=== PATIENT | female | born 1960 | race Caucasian/White ===

== ENCOUNTER → 2024-05-09 | Outpatient (CLI) | payer BC ==
[2024-05-09 19:25] LABS: BUN/Creat Ratio 20.57 Ratio (12.00-20.00); Blood Urea Nitrogen 14.4 mg/dL (9.0-27.0); Chloride 103 mmol/L (96-109); Glucose 99 mg/dL (70-110); Potassium 4.3 mmol/L (3.5-5.5); Sodium 141 mmol/L (135-145)
[2024-05-09 19:26] LABS: Calcium 9.8 mg/dL (8.7-10.3); Carbon Dioxide 24.8 mmol/L (21.6-31.8); HGB 13.2 g/dL (12.0-15.0); MCH 24.7 pg (27.0-32.0); MCHC 30.7 g/dL (32.0-37.0); MCV 80.5 FL (80.0-97.0); Mean Platelet Volume 10.2 FL (9.5-12.2); NRBC Per 100 WBC 0 X 10*3/uL (0.00-0.01); Platelet Count 349 X 10*3/uL (140-440); RBC 5.34 X 10*6/uL (4.10-5.20); RDW 14.2 % (11.5-14.5); WBC 8.64 X 10*3/uL (4.50-10.00)
== END | disposition home or self-care (01) ==
LOC: LABPAT 15:18
PROVIDERS: ATTEND Orthopaedic Surgery
DX: Z01.818 Encounter for other preprocedural examination (principal); Z22.322 Carrier or suspected carrier of Methicillin resistant Staphylococcus aureus; M17.11 Unilateral primary osteoarthritis, right knee
CPT/HCPCS: 80048; 85027; 87070; 93005

== ENCOUNTER 2024-05-22 07:52 | Day surgery (SDC) | payer BC ==
[~2024-05-22 07:52] MED LIST: TRANEXAMIC 1,000 MG/100ML-NACL 1,000 MG in SALINE 1 100ML.BAG IVPB PRN
--- NOTE | 2024-05-22 08:12 | HP ---
HISTORY AND PHYSICAL DATE OF SURGERY: 05/17/2024 HISTORY OF PRESENT ILLNESS: Devika Mahoney is a 63-year-old patient, seen with symptomatic right knee osteoarthritis. We discussed options regarding treatment. She elected to proceed with right total knee arthroplasty. Consent regarding the procedure was obtained. PAST MEDICAL HISTORY: Hyperlipidemia, osteoarthritis. SURGICAL HISTORY: Left partial knee arthroplasty, hysterectomy. DAILY MEDICATIONS: 1. Atorvastatin. 2. Diclofenac. ALLERGIES: None. SOCIAL HISTORY: She denies current tobacco use. PHYSICAL EVALUATION OF RIGHT KNEE: Range of motion is -6 to 80 degrees. Tenderness along the medial and lateral joint lines. Crepitance along the medial patellofemoral compartments with range of motion. Pain with patellofemoral compression. Ligaments stable. Hip rotation is without pain. Distal neurovascular exam is intact. IMAGING: Right knee radiographs reveal severe osteoarthritic changes. IMPRESSION: 1. Right knee osteoarthritis. 2. Hyperlipidemia. PLAN: Right total knee arthroplasty. MMODL / IJN: [id number] /
[2024-05-22] MEDS: IV FLUID CONTINUATION 1,000 ML IV ONE (08:36)
[2024-05-22] MEDS ORDERED: fentaNYL (PF) 50 MCG/ML 2 ML AMP IVP PRN (08:47)
[2024-05-22] MEDS ORDERED: LIDOCAINE 1% (10MG/ML) FOR IV START INTRADERMA PRN (08:47)
[2024-05-22] MEDS: ONDANSETRON 4 MG/2 ML VIAL IVP ONE (08:52)
[2024-05-22] MEDS: LACTATED RINGERS 1,000 ML IV SCH (08:52)
[2024-05-22] MEDS: DEXAMETHASONE SOD PHOSPHATE 4 MG/ML 1 ML VIAL IV ONE (08:52)
[2024-05-22] MEDS: MELOXICAM 7.5 MG TAB PO PRN (08:52)
[2024-05-22] MEDS: ACETAMINOPHEN TAB 500 MG TAB PO PRN (08:53)
[2024-05-22] MEDS: MIDAZOLAM 2 MG/2 ML VIAL IV PRN (09:16)
[2024-05-22] MEDS: MIDAZOLAM 2 MG/2 ML VIAL IVP ONE (09:18)
[2024-05-22] MEDS ORDERED: ROCURONIUM 10 MG/ML (5 ML VIAL) IV ONE (09:54)
[2024-05-22] MEDS ORDERED: PHENYLEPHRINE-0.9% NACL SYG 1,000 MCG/10 ML SYRINGE ONE (09:54)
[2024-05-22] MEDS ORDERED: MIDAZOLAM 2 MG/2 ML VIAL ONE (09:54)
[2024-05-22] MEDS ORDERED: NEOSTIGMINE 1 MG/ML 10 ML VIAL ONE (09:54)
[2024-05-22] MEDS ORDERED: PROPOFOL 10 MG/ML 20 ML VIAL IV ONE (09:54)
[2024-05-22] MEDS ORDERED: LIDOCAINE 1% INJ 10MG/ML (20 ML MDV) ONE (09:54)
[2024-05-22] MEDS ORDERED: fentaNYL (PF) 50 MCG/ML 2 ML AMP ONE (09:54)
[2024-05-22] MEDS ORDERED: SUCCINYLCHOLINE CHLORIDE 200 MG/10 ML VIAL IV ONE (09:54)
[2024-05-22] MEDS ORDERED: GLYCOPYRROLATE 0.2 MG/ML 2 ML VIAL ONE (09:54)
[2024-05-22] MEDS ORDERED: ROPIVACAINE 5 MG/ML 30 ML VIAL ONE (09:54)
[2024-05-22] MEDS ORDERED: SODIUM CHLORIDE 0.9% (PF) 10 ML VIAL ONE (09:54)
[2024-05-22] MEDS ORDERED: TRANEXAMIC 1,000 MG/100ML-NACL PREMIX BAG ONE (09:54)
[2024-05-22] MEDS ORDERED: KETAMINE HCL IN 0.9 % NACL 50 MG/5 ML SYRINGE ONE (09:54)
[2024-05-22] MEDS: ceFAZolin 1,000 MG in SODIUM CHLORIDE 0.9% 1,000 ML IRRIGATION ONE (10:27)
[2024-05-22] MEDS: LACTATED RINGERS 1,000 ML IV ONE (11:33)
[2024-05-22] MEDS ORDERED: HYDROcodone/APAP 5-325MG 1 EACH TAB PO PRN (11:43)
[2024-05-22] MEDS ORDERED: HYDROmorphone 0.5 MG/0.5 ML SYRINGE IVP PRN (11:43)
[2024-05-22] MEDS ORDERED: NALOXONE 0.4 MG/ML 1 ML VIAL IV PRN (11:43)
--- NOTE | 2024-05-22 11:43 | P.OP ---
Date of Procedure: 05/22/24 Preoperative Diagnosis: Right knee osteoarthritis Postoperative Diagnosis: Right knee osteoarthritis Procedure(s) Performed: Right total knee arthroplasty Implants: 1. DePuy attune size 6 narrow right cruciate retaining cemented femur 2. DePuy attune size 6 fixed-bearing cemented tibial baseplate 3. DePuy attune size 6 fixed-bearing cruciate retaining 6 mm polyethylene tibial insert 4. DePuy attune 35 mm all polyethylene cemented patella Anesthesia: regional (Adductor canal catheter, iPAQ block), spinal Surgeon: Sander Duron Product Safety Expert #1: Sylvester Lindsay Estimated Blood Loss (ml): 55 Pathology: none sent Condition: stable Disposition: PACU Indications for Procedure: 63-year-old patient seen with symptomatic right knee osteoarthritis. After having treatment options discussed, she elected to proceed with total knee arthroplasty Operative Findings: See description of procedure Description of Procedure: Patient was taken to the operative suite after having an adductor canal catheter placed by the department of anesthesia. Patient underwent a spinal anesthetic by the department of anesthesia. Patient was given preoperative IV intake antibiotics and TXA. A well-padded tourniquet was placed about the right lower extremity. The lower extremity was then prepped and draped in the normal sterile orthopedic fashion. The extremity was elevated, a tourniquet was insufflated to 300. A standard anterior incision was made sharply through skin. Dissection was taken down through the subcutaneous soft tissues down to the extensor mechanism. A medial arthrotomy was performed, patella was everted and knee was flexed. There was advanced osteoarthritis noted. I introduced my distal intramedullary femoral drill. I then introduced the distal femoral cutting jig. Sylvester BECK secured the cutting jig with 2 pins. I held retractors in position while EBONY performed the distal femoral resection through the guide area we now removed her distal femoral cutting guide. We now placed our 4-in-1 femoral cutting block and positioned and it was secured with 2 pins by Sylvester BECK while I held the block in position. The distal femoral finishing was now completed. A proximal tibial cutting guide was positioned. I held the guide in the appropriate position with both hands while Sylvester BECK inserted stabilizing pins into the guide. Proximal tibial cut was made. We now placed a trial femoral component into position, along with an appropriate size tibial tray and insert. We now took the knee through range of motion and had full extension good flexion and good overall soft tissue balance noted. The patella was everted and stabilized with 2 towel clips held by Sylvester BECK while I performed a flush with patellar quad tendon utilizing a fresh sawblade. We templated the patella, appropriate drill holes were made. An appropriate trial patella was positioned, knee was taken through full range of motion with the patella tracking very nicely. The trial patella was removed. Drill holes were made through the femoral component. All trial components were removed after marking off the appropriate rotation of the tibia. Retractors were now positioned along the proximal tibia. An appropriate keel punch was made with the appropriate size tibial guide by myself on Sylvester BECK assisted by holding retractors. At this point appropriate size implants were chosen and opened. The joint was irrigated copiously with pulse lavage mechanical irrigation. The wound was irrigated with pulse lavage mechanical irrigation. We mixed antibiotic methylmethacrylate. We placed the knee into flexion. We placed multiple retractors assisted by Sylvester BECK to expose the proximal tibia. Once the methyl methacrylate was ready, the tibial component was cemented into place removing any excess methylmethacrylate form by both myself and Sylvester BECK. The femoral component was cemented into place removing the removing any excess methylmethacrylate performed by both myself and Karis BECK. We then inserted the appropriate size polyethylene tibial insert. We made sure that it was locked into position. We took the knee into full extension, and then back in a flexion making sure we had removed any excess methylmethacrylate. The patellar component was then cemented down and secured with clamp. Excess methylmethacrylate removed. We kept the knee in full extension, patellar clamp in position until methylmethacrylate had hardened. Once it had hardened the patellar clamp was removed. The knee was taken through full range of motion. The patella tracked nicely. There was good soft tissue balancing. The tourniquet was now released. Additional hemostasis was achieved via electrocautery. A second gram of TXA was given. The wound again was irrigated with pulse lavage mechanical irrigation. The extensor mechanism was repaired with Vicryl. We checked the repair with range of motion and it was stable. The subcutaneous soft tissues were repaired with Vicryl in layers. The skin was approximated with pernio/Dermabond. Sterile dressings were applied followed by loose web roll and Marcell bandage. The patient was transferred to a bed, and taken to recovery in stable and satisfactory condition. Sylvester BECK assisted with this complex procedure.
[2024-05-22] MEDS: HYDROmorphone 0.5 MG/0.5 ML SYRINGE IVP PRN (12:21)
[2024-05-22] MEDS: ROPIVACAINE 1,100 MG, SODIUM CHLORIDE 0.9% 500 ML 330 ML, EMPTY PAIN BALL 1 EACH MISCELLANE PRN (12:26)
[2024-05-22] MEDS: droPERidol 2.5 MG/ML VIAL IVP ONE (12:54)
--- NOTE | 2024-05-22 13:12 | XR ---
EXAMINATION TYPE: XR knee limited RT DATE OF EXAM: 05/22/2024 1:05 PM COMPARISON: Prior right knee x-ray April 18, 2024 CLINICAL INDICATION: Female, 63 years old with history of Evaluation for Postop abnormality and align ment, pain TECHNIQUE: Portable AP and crosstable lateral views of the right knee are obtained immediately posto peratively. FINDINGS: Metallic hardware from total right knee arthroplasty is seen and appears satisfactory in alignment and position. There is evidence of recent surgery with diffuse subcutaneous gas and soft t issue swelling noted. IMPRESSION: METALLIC HARDWARE FROM TOTAL RIGHT KNEE ARTHROPLASTY IS SATISFACTORY IN ALIGNMENT. [facility], , 05/22/2024 1:10 PM
--- NOTE | 2024-05-22 14:31 | P.ANPRN ---
Procedure Note - Anesthesia - Nerve Block Performed Right Adductor Canal Infusion Time Out Performed: Yes (0916) Date of Procedure: 05/22/24 Location of Patient: PreOp Indication: Acute Post-Operative Pain, Analgesia, Dx/Pain Location (right knee), Requested by Surgeon Specifically requested for management of pain by DrSusana: Sander Duron Sedation Type: Sedate with meaningful contact maintained Preparation: Sterile Prep, Sterile Dressing Position: Supine Catheter: Indwelling Needle Types: Pajunk Needle Gauge: 18 Ultrasound used to visualize needle placement: Yes Ultrasound used to observe medication spread: Yes Injectate: 0.5% Ropivacaine (see comment for volume) (20 mL +10 mL of normal saline) Blood Aspirated: No Pain Paresthesia on Injection Noted: No Resistance on Injection: Normal Image Stored and Saved: Yes Events: Uneventful and Well Tolerated Right iPack Single Time Out Performed: Yes Date of Procedure: 05/22/24 Location of Patient: PreOp Indication: Acute Post-Operative Pain, Analgesia, Dx/Pain Location (right knee), Requested by Surgeon Specifically requested for management of pain by DrSusana: Sander Duron Sedation Type: Sedate with meaningful contact maintained Preparation: Sterile Prep Position: Left Lateral Catheter: None Needle Types: Pajunk Needle Gauge: 21 Ultrasound used to visualize needle placement: Yes Ultrasound used to observe medication spread: Yes Injectate: 0.5% Ropivacaine (see comment for volume) (20 mL +10 mL of normal saline) Blood Aspirated: No Pain Paresthesia on Injection Noted: No Resistance on Injection: Normal Image Stored and Saved: Yes Events: Uneventful and Well Tolerated
[2024-05-22] MEDS: HYDROcodone/APAP 7.5-325MG 1 EACH TAB PO PRN (14:44)
[2024-05-22] MEDS: SODIUM CHLORIDE 0.9% 1,000 ML IV SCH (14:45)
[2024-05-22] MEDS: HYDROmorphone 1 MG/ML 1 ML SYRINGE IVP PRN (16:46)
[2024-05-22] MEDS: SENNOSIDES-DOCUSATE SODIUM 1 EACH TAB PO SCH (21:22)
[2024-05-22] MEDS: ASPIRIN 81 MG PO SCH (21:22)
[2024-05-23] MEDS: HYDROmorphone 0.5 MG/0.5 ML SYRINGE IVP PRN (01:29)
--- NOTE | 2024-05-23 07:52 | P.PN ---
Progress Note - Text Progress Note Date: 05/23/24 (015) Anesthesiology Postop day 1 status post total knee arthroplasty with adductor canal catheter. Patient doing well. VAS 5 out of 10. Gross strength intact in lower extremity. Afebrile. Denies alterations in sensorium. Catheter site intact. Heart regular rate Lungs nonlabored Abdomen nondistended Assessment: Postop day 1 status post total knee arthroplasty with adductor canal catheter Plan: 1.All questions answered. Maintain catheter 2 more days with patient removal at home. Instructions to be given at discharge. 2.This note was dictated using [employer]sens[employer] software. Please be advised there is a potential for misspellings or errors in bone char puller.
[2024-05-23 08:42] LABS: Basophils # (A) 0.02 X 10*3/uL (0.00-0.10); Basophils % (A) 0.2 %; Eosinophils # (A) 0 X 10*3/uL (0.04-0.35); Eosinophils % (A) 0 %; HCT 37.6 % (37.2-46.3); HGB 11.7 g/dL (12.0-15.0); Lymphocytes # (A) 1.79 X 10*3/uL (0.90-5.00); Lymphocytes % (A) 14.3 %; MCH 25.2 pg (27.0-32.0); MCHC 31.1 g/dL (32.0-37.0); MCV 80.9 FL (80.0-97.0); Mean Platelet Volume 10.3 FL (9.5-12.2); Monocytes # (A) 0.87 X 10*3/uL (0.20-1.00); NRBC Per 100 WBC 0 X 10*3/uL (0.00-0.01); Neutrophils # (A) 9.77 X 10*3/uL (1.80-7.70); Platelet Count 282 X 10*3/uL (140-440); RBC 4.65 X 10*6/uL (4.10-5.20); RDW 14.1 % (11.5-14.5); WBC 12.51 X 10*3/uL (4.50-10.00)
[2024-05-23] MEDS: hydrOXYzine pamoate 25 MG CAP PO PRN (08:48)
[2024-05-23] MEDS: MULTIVITAMINS, THERA 1 EACH TAB PO SCH (08:49)
--- NOTE | 2024-05-23 12:08 | P.PN ---
Subjective Progress Note Date: 05/23/24 Principal diagnosis: Status post right total knee arthroplasty Patient was evaluated at bedside, she was resting in her hospital bed. Physical therapy was actually just about get patient up and work with her. Patient did have quite a bit of pain yesterday in the postoperative period, she was initially scheduled as outpatient, she was then admitted to the hospital for pain control. On-Q pain catheter in good position condition, she is tolerating oral medications. She denies headaches, headedness, chest pain or shortness of breath Objective - Vital Signs Vital signs: Vital Signs Temp 98.2 F 05/23/24 06:55 Pulse 62 05/23/24 06:55 Resp 18 05/23/24 11:16 BP 105/65 05/23/24 06:55 Pulse Ox 92 L 05/23/24 06:55 FiO2 Intake & Output 05/22/24 05/23/24 05/23/24 18:59 06:59 18:59 Intake Total 1451 300 Output Total 155 100 Balance 1296 200 Weight 115 kg Intake: IV 1451 Oral 300 Output: Urine 100 100 Estimated Blood Loss 55 Other: Voiding Method Bedside Commode Bedside Commode # Voids 1 1 - Exam Right lower extremity: Incision is clean, dry, and intact. The foam dressing is in good condition. There is minimal soft tissue swelling and ecchymosis surrounding the medial and lateral aspects of the incision. Calf is soft, no tenderness with palpation. Plantar flexion, dorsiflexion, EHL, FHL are intact. Sensory exam to light touch throughout the extremity is intact, dorsal pedis pulses 2+. - Labs CBC & Chem 7: 05/23/24 03:36 Labs: Abnormal Lab Results - Last 24 Hours (Table) 05/23/24 Range/Units 03:36 WBC 12.51 H (4.50-10.00) X 10*3/uL Hgb 11.7 L (12.0-15.0) g/dL MCH 25.2 L (27.0-32.0) pg MCHC 31.1 L (32.0-37.0) g/dL Immature Gran # 0.06 H (0.00-0.04) X 10*3/uL Neutrophils # 9.77 H (1.80-7.70) X 10*3/uL Eosinophils # 0 L (0.04-0.35) X 10*3/uL Assessment and Plan Assessment: Postoperative day #1 status post right total knee arthroplasty Plan: Pain control, continue with current oral medications DVT prophylaxis, continue aspirin 81 mg Wound care instructions were discussed, this to include bandaging instructions, On-Q pain catheter, showering and icing and elevating Encourage incentive spirometer Medical recommendations appreciated PT recommendations appreciated Discharge planning: Pending pain control hopeful discharge home today versus 05/24/2024 Time with Patient: Less than 30
--- NOTE | 2024-05-23 13:03 | P.CONS ---
History of Present Illness - Reason for Consult Consult date: 05/23/24 Medical management - History of Present Illness History of present illness; patient 63-year-old lady with past medical history significant for osteoarthritis, hyperlipidemia who presented to the hospital for elective right total knee arthroplasty. Patient has been dealing outpatient with right knee pain for a while, patient was following up outpatient with orthopedics, they tried conservative measures in the form of therapy, pain medications and KENNY's but did not improve patient's symptoms. Decision was made to proceed with right total knee arthroplasty for which patient presented to the hospital on 05/22. Postoperatively internal medicine team were consulted for medical management REVIEW OF SYSTEMS: CONSTITUTIONAL: No fever, no malaise, no fatigue. HEENT: No recent visual problems or hearing problems. Denied any sore throat. CARDIOVASCULAR: No chest pain, orthopnea, PND, no palpitations, no syncope. PULMONARY: No shortness of breath, no cough, no hemoptysis. GASTROINTESTINAL: No diarrhea, no nausea, no vomiting, no abdominal pain. NEUROLOGICAL: No headaches, no weakness, no numbness. HEMATOLOGICAL: Denies any bleeding or petechiae. GENITOURINARY: Denies any burning micturition, frequency, or urgency. MUSCULOSKELETAL/RHEUMATOLOGICAL: Right knee pain ENDOCRINE: Denies any polyuria or polydipsia. The rest of the 14-point review of systems is negative. PHYSICAL EXAMINATION: GENERAL: The patient is alert and oriented x3, not in any acute distress. Well developed, well nourished. HEENT: Pupils are round and equally reacting to light. EOMI. No scleral icterus. No conjunctival pallor. Normocephalic, atraumatic. No pharyngeal erythema. No thyromegaly. CARDIOVASCULAR: S1 and S2 present. No murmurs, rubs, or gallops. PULMONARY: Chest is clear to auscultation, no wheezing or crackles. ABDOMEN: Soft, nontender, nondistended, normoactive bowel sounds. No palpable organomegaly. MUSCULOSKELETAL: Right knee surgical incision EXTREMITIES: No cyanosis, clubbing, or pedal edema. NEUROLOGICAL: Gross neurological examination did not reveal any focal deficits. SKIN: No rashes. Assessment and plan Right knee osteoarthritis status post right total knee arthroplasty Hyperlipidemia Monitor vital signs Monitor CBC Continue pain management per orthopedics Continue DVT prophylaxis per orthopedics Aggressive bowel regimen to prevent opioid-induced constipation Resume home meds PT and OT consulted Labs and medication were reviewed.. Continue same treatment. Continue with symptomatic treatment. Resume home medication. Monitor labs and vitals. DVT and GI prophylaxis. Further recommendations as per clinical course of the patient Dictation was produced using [employer] dictation software. please excuse any grammatical, word or spelling errors. Past Medical History Past Medical History: Hyperlipidemia History of Any Multi-Drug Resistant Organisms: None Reported Past Surgical History: Hysterectomy, Joint Replacement Additional Past Surgical History / Comment(s): lft partial knee Past Anesthesia/Blood Transfusion Reactions: No Reported Reaction Past Psychological History: No Psychological Hx Reported Smoking Status: Never smoker Past Alcohol Use History: None Reported Past Drug Use History: None Reported - Past Family History Father Family Medical History: No Reported History Medications and Allergies Home Medications Medication Instructions Recorded Confirmed Type Aspirin [Adult Low Dose Aspirin EC] 81 mg PO HS 05/17/24 05/22/24 History Atorvastatin Calcium 20 mg PO HS 05/17/24 05/22/24 History Acetaminophen Tab [Tylenol Tab] 1,000 mg PO Q6HR PRN 05/22/24 05/22/24 History Diclofenac Sodium [Voltaren] 75 mg PO BID PRN 05/22/24 05/22/24 History Ibuprofen [Motrin] 400 mg PO Q6HR PRN 05/22/24 05/22/24 History Allergies Allergy/AdvReac Type Severity Reaction Status Date / Time No Known Allergies Allergy Verified 05/22/24 08:32 Physical Exam Vitals: Vital Signs Temp Pulse Resp BP Pulse Ox 05/23/24 06:55 98.2 F 62 17 105/65 92 L 05/23/24 01:34 97.9 F 65 17 125/77 97 05/22/24 19:38 97.6 F 64 18 155/77 96 05/22/24 15:30 69 130/83 05/22/24 15:19 98.3 F 52 L 18 124/79 97 05/22/24 15:15 57 L 133/83 96 05/22/24 15:00 59 L 129/84 95 05/22/24 14:45 60 16 131/76 95 05/22/24 14:30 56 L 131/81 95 05/22/24 14:25 59 L 16 119/76 96 05/22/24 13:52 57 L 16 112/66 96 05/22/24 13:35 57 L 16 124/71 96 05/22/24 13:20 56 L 16 116/73 05/22/24 13:05 55 L 16 116/62 95 05/22/24 12:50 53 L 16 116/70 94 L 05/22/24 12:35 55 L 16 120/68 94 L 05/22/24 12:20 55 L 14 128/86 92 L 05/22/24 12:05 63 14 153/92 95 Intake and Output 05/22/24 05/23/24 05/23/24 22:59 06:59 14:59 Intake Total 300 Output Total 100 Balance -100 300 Intake: Oral 300 Output: Urine 100 Other: Voiding Method Bedside Commode # Voids 1 Results CBC & Chem 7: 05/23/24 03:36 Labs: Abnormal Lab Results - Last 24 Hours (Table) 05/23/24 Range/Units 03:36 WBC 12.51 H (4.50-10.00) X 10*3/uL Hgb 11.7 L (12.0-15.0) g/dL MCH 25.2 L (27.0-32.0) pg MCHC 31.1 L (32.0-37.0) g/dL Immature Gran # 0.06 H (0.00-0.04) X 10*3/uL Neutrophils # 9.77 H (1.80-7.70) X 10*3/uL Eosinophils # 0 L (0.04-0.35) X 10*3/uL
[2024-05-23] MEDS: ONDANSETRON 4 MG/2 ML VIAL IVP PRN (13:24)
[2024-05-23] MEDS: ASPIRIN 81 MG PO SCH (20:19)
[2024-05-23] MEDS: ATORVASTATIN 20 MG TAB PO SCH (21:04)
[2024-05-24 07:25] VITALS: BP 129/72; PULSE 82; RESP 18; TEMP 98.2
--- NOTE | 2024-05-24 11:29 | P.PN ---
Subjective Progress Note Date: 05/24/24 Principal diagnosis: Status post right total knee arthroplasty Patient was evaluated at bedside, she was resting in her hospital bed. Pain is better controlled today. She denies headaches, headedness, chest pain or shortness of breath Objective - Vital Signs Vital signs: Vital Signs Temp 98.2 F 05/24/24 07:24 Pulse 82 05/24/24 07:24 Resp 18 05/24/24 07:24 BP 129/72 05/24/24 07:24 Pulse Ox 90 L 05/24/24 07:24 FiO2 Intake & Output 05/23/24 05/24/24 05/24/24 18:59 06:59 18:59 Intake Total 300 Output Total 100 Balance 200 Intake: Oral 300 Output: Urine 100 Other: Voiding Method Bedside Commode Bedside Commode # Voids 4 1 - Exam Right lower extremity: Incision is clean, dry, and intact. The foam dressing is in good condition. There is minimal soft tissue swelling and ecchymosis surrounding the medial and lateral aspects of the incision. Calf is soft, no tenderness with palpation. Plantar flexion, dorsiflexion, EHL, FHL are intact. Sensory exam to light touch throughout the extremity is intact, dorsal pedis pulses 2+. - Labs CBC & Chem 7: 05/23/24 03:36 Assessment and Plan Assessment: Postoperative day #2 status post right total knee arthroplasty Plan: Pain control, plan for discharge home on [place] 7.5 mg / 325 mg DVT prophylaxis, aspirin 81 mg twice a day for 30 days Wound care instructions were discussed, this to include bandaging instructions, On-Q pain catheter, showering and icing and elevating Encourage incentive spirometer Medical recommendations appreciated PT recommendations appreciated Discharge planning: Stable for discharge home today Time with Patient: Less than 30
--- NOTE | 2024-05-24 11:35 | P.DS ---
Providers Date of admission: 05/22/2024 Expected date of discharge: 05/24/24 Attending physician: Sander Duron Consults: 05/22/24 11:43 Consult Physician Routine Consulting Provider: Bushra Marlow Consult Reason/Comments: Medical management Do you want consulting provider notified?: Yes Primary care physician: Madina Lor [facility] Course: Date of admission: 05/22/2024 Date of discharge: 05/24/2024 Admission diagnosis: Status post right total knee arthroplasty Discharge diagnosis: Same Attending physician: Dr. Duron Surgical procedures: Right total knee arthroplasty Brief history: Patient is a 63-year-old female with a history of progressive primary right knee osteoarthritis. At this point patient has failed conservative treatment measures and has opted to proceed with a elective right total knee arthroplasty. Hospital course: Details of patient's surgery can be found in operative report. Patient tolerated the procedure well and was subsequently transported to orthopedic floor. Patient's orthopeidc and medical care was provided daily. Patient had daily laboratory tests performed for evaluation of overall blood counts. Patient had daily physical therapy to include strengthening range of motion as well as education with walker ambulation. Patient was treated with aspirin for their postoperative DVT prophylaxis during their inpatient stay. David hutson was noted to have a relatively uneventful postoperative course. Patient reported satisfactory pain control with oral pain medications by postoperative day 2. Patient showed satisfactory progress with physical therapy. Patient moved steadily through the program and had no difficulty meeting the goals by postoperative day 2. Given patient's otherwise satisfactory course and having met physical therapy goals, plan is to discharge patient home on postoperative day 2. Discharge condition/disposition: Patient will be discharged home in stable condition. Discharge medications: Instructions are given on resumption of patient's normal daily medications per primary care recommendation, in addition patient will be prescribed [place] 7.5 mg / 325 mg, aspirin 81 mg, senna S. Discharge instructions: 1. Wound care and infection precautions, keep incision dry and covered while showering, no lotions, creams, moisturizers. No soaking, tubs, pools, hottubs. Do not scrub over the incision. 2. Weight-bear as tolerated with walker / cane until follow-up. 3. Ice and elevate when necessary. Do not exceed 20 minutes per hour with ice pack. 4. Utilize compression sleeve until seen at first follow up appointment. 5. Visiting nursing care. 6. Home physical therapy including home CPM. 7. Pain meds and anticoagulants per prescription. 8. Pain medication has potential to cause constipation. Increase oral fluid and fiber intake. Contact primary care provider if you have not had a bowel movement within 48 hours after discharge 9. No anti-inflammatory medication until discussed at first post operative visit, this including Motrin, Aleve, Mobic, Diclofenac. 10. Follow up in office at 2 weeks postop with Geoffrey Lozada PA-C/Sylvester Monsivais 11. Follow up with your primary care doctor 7-10 days after discharge. 12. Contact [facility] with any questions, . Procedures: Right total knee arthroplasty Patient Condition at Discharge: Good Plan - Discharge Summary Discharge Rx Participant: Yes New Discharge Prescriptions: New Aspirin [Adult Low Dose Aspirin EC] 81 mg PO BID #60 tab HYDROcodone/APAP 7.5-325MG [[place] 7.5] 1 each PO Q4HR PRN #42 tab PRN Reason: Pain Sennosides/Docusate Sodium [Senna-S 8.6-50 mg Tablet] 2 each PO DAILY PRN #30 tablet PRN Reason: Constipation No Action Atorvastatin Calcium 20 mg PO HS Diclofenac Sodium [Voltaren] 75 mg PO BID PRN PRN Reason: Pain Aspirin [Adult Low Dose Aspirin EC] 81 mg PO HS Acetaminophen Tab [Tylenol Tab] 1,000 mg PO Q6HR PRN PRN Reason: Pain Ibuprofen [Motrin] 400 mg PO Q6HR PRN PRN Reason: Pain Discharge Medication List Aspirin [Adult Low Dose Aspirin EC] 81 mg PO HS 05/17/24 [History] Atorvastatin Calcium 20 mg PO HS 05/17/24 [History] Acetaminophen Tab [Tylenol Tab] 1,000 mg PO Q6HR PRN 05/22/24 [History] Diclofenac Sodium [Voltaren] 75 mg PO BID PRN 05/22/24 [History] Ibuprofen [Motrin] 400 mg PO Q6HR PRN 05/22/24 [History] Aspirin [Adult Low Dose Aspirin EC] 81 mg PO BID #60 tab 05/24/24 [Rx] HYDROcodone/APAP 7.5-325MG [[place] 7.5] 1 each PO Q4HR PRN #42 tab 05/24/24 [Rx] Sennosides/Docusate Sodium [Senna-S 8.6-50 mg Tablet] 2 each PO DAILY PRN #30 tablet 05/24/24 [Rx] Follow up Appointment(s)/Referral(s): [facility], [NON-STAFF] - 1-2 Days ([facility] will call you to schedule your in home physical therapy and nursing visits. ) Ermias Lozada PAC [PHYSICIAN PHARMACEUTICAL ANALYST] - 06/09/24 9:30 am Patient Instructions/Handouts: Knee Replacement (GEN) Activity/Diet/Wound Care/Special Instructions: Orthopedic Discharge Instructions: 1. Wound care and infection precautions, keep incision dry and covered while showering, no lotions, creams, moisturizers. No soaking, pools, hot tubs. Do not scrub over incision. 2. Weight-bear as tolerated with walker / cane until follow-up. 3. Ice and elevate when necessary. Do not exceed 20 minutes per hour with ice pack. 4. Utilize compression sleeve until seen at first follow up appointment. 5. Pain meds and anticoagulants per prescription. 6. Pain medication has potential to cause constipation. Increase oral fluid and fiber intake. Contact primary care provider if you have not had a bowel movement within 48 hours after discharge. 7. No anti-inflammatory medication until discussed at first post operative visit, this including Motrin, Aleve, Mobic, Diclofenac. 8. Follow up in office at 2 weeks postop with Geoffrey Lozada PA-C / Sylvester Lindsay PA-C 9. Follow up with your primary care doctor 7-10 days after discharge. 10. Contact [facility] with any questions, . Keep incision clean, dry, intact. While showering, cover silver foam dressing with Saran wrap. Keep silver foam dressing on until 05/29/2024. Once dressing is removed, it is okay to shower directly over incision. Discharge Disposition: HOME WITH HOME HEALTH SERVICES
--- NOTE | 2024-05-24 13:23 | P.PN ---
Subjective Progress Note Date: 05/24/24 patient 63-year-old lady with past medical history significant for osteoarthritis, hyperlipidemia who presented to the hospital for elective right total knee arthroplasty. Patient has been dealing outpatient with right knee pain for a while, patient was following up outpatient with orthopedics, they tried conservative measures in the form of therapy, pain medications and KENNY's but did not improve patient's symptoms. Decision was made to proceed with right total knee arthroplasty for which patient presented to the hospital on 05/22. Postoperatively internal medicine team were consulted for medical management 05/24. Patient seen examined. Patient is doing well, working with PT and OT. Being discharged to home today REVIEW OF SYSTEMS: CONSTITUTIONAL: No fever, no malaise,. CARDIOVASCULAR: No chest pain, no palpitations, no syncope. PULMONARY: No shortness of breath, no cough, GASTROINTESTINAL: No diarrhea, no nausea, no vomiting, no abdominal pain. NEUROLOGICAL: No headaches, no weakness, PHYSICAL EXAMINATION: GENERAL: The patient is alert and oriented x3, not in any acute distress. Well developed, well nourished. HEENT: Pupils are round and equally reacting to light. EOMI. No scleral icterus. No conjunctival pallor. Normocephalic, atraumatic. No pharyngeal erythema. No th yromegaly. CARDIOVASCULAR: S1 and S2 present. No murmurs, rubs, or gallops. PULMONARY: Chest is clear to auscultation, no wheezing or crackles. ABDOMEN: Soft, nontender, nondistended, normoactive bowel sounds. No palpable organomegaly. MUSCULOSKELETAL: Right knee surgical incision EXTREMITIES: No cyanosis, clubbing, or pedal edema. NEUROLOGICAL: Gross neurological examination did not reveal any focal deficits. SKIN: No rashes. Assessment and plan Right knee osteoarthritis status post right total knee arthroplasty Hyperlipidemia Monitor vital signs Monitor CBC Continue pain management per orthopedics Continue DVT prophylaxis per orthopedics Aggressive bowel regimen to prevent opioid-induced constipation Continue home meds PT and OT recommend home care Labs and medication were reviewed.. Continue same treatment. Continue with symptomatic treatment. Resume home medication. Monitor labs and vitals. DVT and GI prophylaxis. Further recommendations as per clinical course of the patient Dictation was produced using [employer] dictation software. please excuse any grammatical, word or spelling errors. Objective - Vital Signs Vital signs: Vital Signs Temp 98.2 F 05/24/24 07:24 Pulse 82 05/24/24 07:24 Resp 18 05/24/24 07:24 BP 129/72 05/24/24 07:24 Pulse Ox 90 L 05/24/24 07:24 FiO2 Intake & Output 05/23/24 05/24/24 05/24/24 18:59 06:59 18:59 Intake Total 300 Output Total 100 Balance 200 Intake: Oral 300 Output: Urine 100 Other: Voiding Method Bedside Commode Bedside Commode # Voids 4 1 - Labs CBC & Chem 7: 05/23/24 03:36
== END 2024-05-24 15:06 | disposition home health service (06) ==
LOC: OR 07:52 → 4SSUR 12:05 → OR 05-24 15:06
PROVIDERS: ATTEND Orthopaedic Surgery
DX: M17.11 Unilateral primary osteoarthritis, right knee (principal); E78.5 Hyperlipidemia, unspecified; G89.18 Other acute postprocedural pain; Z79.82 Long term (current) use of aspirin; Z90.710 Acquired absence of both cervix and uterus; Z79.899 Other long term (current) drug therapy
CPT/HCPCS: 97116; 97161; 64999; 64448; 85025; 73560; 27447; C1776; C1713 ×2; C1751; J2250; J1100; J0690 ×3; J2405 ×2; J1171 ×3; J2795; J1790

== ENCOUNTER 2024-07-04 12:12 | Inpatient (IN) | payer BC ==
[2024-07-04] MEDS ORDERED: ACETAMINOPHEN TAB 325 MG TAB PO PRN (13:05)
[2024-07-04] MEDS ORDERED: HYDROmorphone 1 MG/ML 1 ML SYRINGE IVP PRN (13:05)
[2024-07-04] MEDS ORDERED: NALOXONE 0.4 MG/ML 1 ML VIAL IV PRN (13:05)
--- NOTE | 2024-07-04 13:05 | ED ---
General Adult HPI - General Chief complaint: Recheck/Abnormal Lab/Rx Stated complaint: R knee post-op issue Time Seen by Provider: 07/04/24 12:17 Source: patient, RN notes reviewed Mode of arrival: ambulatory Limitations: no limitations - History of Present Illness Initial comments: 63-year-old female presents emergency department from orthopedics office for admission. Patient states that she had a right knee replacement by Dr. [facility] 6 weeks ago she states she was doing fine up until recently she started having increasing pain, swelling to the right knee patient had attempted aspiration today was unsuccessful. Patient was sent over here for admission for ID consult. Patient reports no fevers she states that she has notable increasing redness and swelling to the right knee - Related Data Home Medications Medication Instructions Recorded Confirmed Aspirin [Adult Low Dose Aspirin EC] 81 mg PO HS 07/04/24 07/04/24 Atorvastatin [Lipitor] 40 mg PO HS 07/04/24 07/04/24 HYDROcodone/APAP 7.5-325MG [[place] 1 tab PO Q4HR PRN 07/04/24 07/04/24 7.5] predniSONE See Taper PO DIRECTED 07/04/24 07/04/24 Allergies Allergy/AdvReac Type Severity Reaction Status Date / Time No Known Allergies Allergy Verified 07/04/24 12:16 Review of Systems ROS Statement: Those systems with pertinent positive or pertinent negative responses have been documented in the HPI. ROS Other: All systems not noted in ROS Statement are negative. Past Medical History Past Medical History: Hyperlipidemia History of Any Multi-Drug Resistant Organisms: None Reported Past Surgical History: Hysterectomy, Joint Replacement, Orthopedic Surgery Additional Past Surgical History / Comment(s): lft partial knee Past Anesthesia/Blood Transfusion Reactions: No Reported Reaction Past Psychological History: No Psychological Hx Reported Smoking Status: Never smoker Past Alcohol Use History: Rare Past Drug Use History: None Reported - Past Family History Father Family Medical History: No Reported History General Exam Limitations: no limitations General appearance: alert, in no apparent distress Head exam: Present: atraumatic, normocephalic, normal inspection Eye exam: Present: normal appearance, PERRL, EOMI. Absent: scleral icterus, conjunctival injection, periorbital swelling Respiratory exam: Present: normal lung sounds bilaterally. Absent: respiratory distress, wheezes, rales, rhonchi, stridor Cardiovascular Exam: Present: regular rate, normal rhythm, normal heart sounds. Absent: systolic murmur, diastolic murmur, rubs, gallop, clicks Extremities exam: Present: other (Right knee healed surgical tenderness palpation increased warmth and minimal redness. Neurovascular intact) Course Vital Signs 07/04/24 07/04/24 12:14 13:16 Temperature 98 F Pulse Rate 88 75 Respiratory 16 12 Rate Blood Pressure 156/84 157/78 O2 Sat by Pulse 97 98 Oximetry Medical Decision Making - Medical Decision Making Was pt. sent in by a medical professional or institution (, EBONY, CLINICAL CYTOGENETICS DIRECTOR, urgent care, hospital, or care home...) When possible be specific @ -Orthopedics Did you speak to anyone other than the patient for history (EMS, parent, family, police, friend...)? What history was obtained from this source @ -No Did you review nursing and triage notes (agree or disagree)? Why? @ -I reviewed and agree with nursing and triage notes Were old charts reviewed (outside hosp., previous admission, EMS record, old EKG , old radiological studies, urgent care reports/EKG's, care home records)? Report findings @ -No old charts were reviewed Differential Diagnosis (chest pain, altered mental status, abdominal pain women, abdominal pain men, vaginal bleeding, weakness, fever, dyspnea, syncope, headache, dizziness, GI bleed, back pain, seizure, CVA, palpatations, mental health, musculoskeletal)? @ -Knee pain, postop infection, EKG interpreted by me (3pts min.). @ -None X-rays interpreted by me (1pt min.). @ -None done CT interpreted by me (1pt min.). @ -None done U/S interpreted by me (1pt. min.). @ -None done What testing was considered but not performed or refused? (CT, X-rays, U/S, labs)? Why? @ -None What meds were considered but not given or refused? Why? @ -None Did you discuss the management of the patient with other professionals (professionals i.e. EBONY Schaeffer, CLINICAL CYTOGENETICS DIRECTOR, lab, RT, psych nurse, social work case manager, ore charger, teacher, senior loan officer, caser in)? Give summary @Orthopedics for admission, did not want any current antibiotics. Was smoking cessation discussed for >3mins.? @ -No Was critical care preformed (if so, how long)? @ -No Were there social determinants of health that impacted care today? How? (Homelessness, low income, unemployed, alcoholism, drug addiction, transportation, low edu. Level, literacy, decrease access to med. care, intermediate, rehab)? @ -No Was there de-escalation of care discussed even if they declined (Discuss DNR or withdrawal of care, Hospice)? DNR status @ -No What co-morbidities impacted this encounter? (DM, HTN, Smoking, COPD, CAD, Cancer, CVA, ARF, Chemo, Hep., AIDS, mental health diagnosis, sleep apnea, morbid obesity)? @ -None Was patient admitted / discharged? Hospital course, mention meds given and route, prescriptions, significant lab abnormalities, going to OR and other pertinent info. @ -Admitted patient was sent over by orthopedics for ID consult they did not recommend antibiotics at this time. Patient will have blood cultures, labs were ordered provided analgesics. Undiagnosed new problem with uncertain prognosis? @ -No Drug Therapy requiring intensive monitoring for toxicity (Heparin, Nitro, Insulin, Cardizem)? @ -No Were any procedures done? @ -No Diagnosis/symptom? @ -Knee pain status post TKA Acute, or Chronic, or Acute on Chronic? @ -[Acute Uncomplicated (without systemic symptoms) or Complicated (systemic symptoms)? @ -Uncomplicated Side effects of treatment? @ -No Exacerbation, Progression, or Severe Exacerbation? @ -No Poses a threat to life or bodily function? How? (Chest pain, [place], [place], pneumonia, PE, COPD, DKA, ARF, appy, cholecystitis, CVA, Diverticulitis, Homicidal, Suicidal, threat to staff... and all critical care pts) @ -No - Lab Data Result diagrams: 07/04/24 12:53 07/04/24 12:53 Lab Results 07/04/24 07/04/24 07/04/24 Range/Units 12:53 12:53 12:53 WBC 19.11 H (4.50-10.00) 10*3/uL RBC 4.97 (4.10-5.20) 10*6/uL Hgb 12.4 (12.0-15.0) g/dL Hct 38.2 (37.2-46.3) % MCV 76.9 L (80.0-97.0) fL MCH 24.9 L (27.0-32.0) pg MCHC 32.5 (32.0-37.0) g/dL Plt Count 408 (140-440) 10*3/uL MPV 9.4 L (9.5-12.2) fL Immature Gran % (Auto) 1.0 % Neutrophils % 86.1 % Lymphocytes % 7.2 % Monocytes % 5.4 % Eosinophils % 0.0 % Basophils % 0.3 % Immature Gran # 0.19 H (0.00-0.04) 10*3/uL Neutrophils # 16.45 H (1.80-7.70) 10*3/uL Lymphocytes # 1.38 (0.90-5.00) 10*3/uL Monocytes # 1.04 H (0.20-1.00) 10*3/uL Eosinophils # 0.00 L (0.04-0.35) 10*3/uL Basophils # 0.05 (0.00-0.10) 10*3/uL Sodium 134 L (137-145) mmol/L Potassium 5.4 H (3.5-5.1) mmol/L Chloride 99 (98-107) mmol/L Carbon Dioxide 22 (22-30) mmol/L Anion Gap 13 mmol/L BUN 18 H (7-17) mg/dL Creatinine 0.56 (0.52-1.04) mg/dL Est GFR (CKD-EPI)AfAm >90 (>60 ml/min/1.73 sqM) Est GFR (CKD-EPI)NonAf >90 (>60 ml/min/1.73 sqM) Glucose 132 H (74-99) mg/dL Plasma Lactic Acid Omid 1.8 (0.7-2.0) mmol/L Calcium 9.5 (8.4-10.2) mg/dL Total Bilirubin 1.1 (0.2-1.3) mg/dL AST 47 H (14-36) U/L ALT 44 H (4-34) U/L Alkaline Phosphatase 192 H (38-126) U/L C-Reactive Protein 24.1 H (<1.0) mg/dL Total Protein 7.5 (6.3-8.2) g/dL Albumin 3.8 (3.5-5.0) g/dL Disposition Clinical Impression: S/P knee replacement, Knee pain Disposition: ADMITTED IP TO THIS HOSP Condition: Fair Time of Disposition: 13:05
[2024-07-04] MEDS: ONDANSETRON 4 MG/2 ML VIAL IVP PRN ×2 (13:14→21:37)
[2024-07-04 13:15] LABS: Basophils # (A) 0.05 10*3/uL (0.00-0.10); Basophils % (A) 0.3 %; HCT 38.2 % (37.2-46.3); HGB 12.4 g/dL (12.0-15.0); Lymphocytes # (A) 1.38 10*3/uL (0.90-5.00); Lymphocytes % (A) 7.2 %; MCH 24.9 pg (27.0-32.0); MCHC 32.5 g/dL (32.0-37.0); MCV 76.9 fL (80.0-97.0); Mean Platelet Volume 9.4 fL (9.5-12.2); Monocytes # (A) 1.04 10*3/uL (0.20-1.00); Monocytes % (A) 5.4 %; Neutrophils # (A) 16.45 10*3/uL (1.80-7.70); Neutrophils % (A) 86.1 %; Platelet Count 408 10*3/uL (140-440); RBC 4.97 10*6/uL (4.10-5.20); RDW 14.6 % (11.5-14.5); WBC 19.11 10*3/uL (4.50-10.00)
[2024-07-04] MEDS: HYDROmorphone 1 MG/ML 1 ML SYRINGE IVP STA (13:15)
[2024-07-04 13:45] LABS: ALT 44 U/L (4-34); African American GFR (CKD) >90 (>60 ml/min/1.73 sqM); Albumin 3.8 g/dL (3.5-5.0); Anion Gap 13 mmol/L; Blood Urea Nitrogen 18 mg/dL (7-17); Calcium 9.5 mg/dL (8.4-10.2); Carbon Dioxide 22 mmol/L (22-30); Chloride 99 mmol/L (98-107); Glucose 132 mg/dL (74-99); Non-African American GFR(CKD) >90 (>60 ml/min/1.73 sqM); Sodium 134 mmol/L (137-145); Total Bilirubin 1.1 mg/dL (0.2-1.3); Total Protein 7.5 g/dL (6.3-8.2)
[2024-07-04 13:52] LABS: Potassium 5.4 mmol/L (3.5-5.1)
[2024-07-04 13:53] LABS: AST 47 U/L (14-36); Alkaline Phosphatase 192 U/L (38-126)
--- NOTE | 2024-07-04 13:54 | P.HPOR ---
History of Present Illness H&P Date: 07/04/24 Chief Complaint: Right knee pain Patient is a 63-year-old female well-known to our orthopedic service, she had recently undergone a right total knee arthroplasty with Dr. Duron on 05/22/2024. I have been following the patient in the outpatient setting over the last for 5 weeks and she had been doing very well. She was evaluated on 06/28/2024 in the office for a rash that developed to the bilateral upper and lower extremities. Patient had been placed on a oral prednisone taper which had been significantly helping her symptoms. She contacted the office today with r iliana to significant pain in her right knee with increase in swelling, some redness and limited range of motion. Patient was brought into the office for further evaluation today. She had stated that after physical therapy Wednesday she did develop some significant discomfort in that knee and it had progressively gotten worse through the weekend. She admitted to some chills and 1 episode of vomiting. She feels that the pain medication has been not helping much at this time. After my exam today in the office, I did attempt to aspirate her right knee which was unsuccessful. Dr. Miranda was also available today to examine the patient and discussed treatment options. With patient's clinical picture, high concern for a periprosthetic infection involving that right knee. I advised patient to go through the emergency room at [facility] to be directly mated to the hospital with plan for surgical intervention for 07/05/2024. Discussed with patient that she would be followed by both internal medicine and infectious disease during her hospital stay. Patient would be undergoing basic lab test upon arrival to the hospital for further evaluation. Patient and her family were in good understanding and proceeded to go to the hospital. Review of Systems Constitutional: Reports as per HPI Past Medical History Past Medical History: Hyperlipidemia History of Any Multi-Drug Resistant Organisms: None Reported Past Surgical History: Hysterectomy, Joint Replacement, Orthopedic Surgery Additional Past Surgical History / Comment(s): lft partial knee Past Anesthesia/Blood Transfusion Reactions: No Reported Reaction Past Psychological History: No Psychological Hx Reported Smoking Status: Never smoker Past Alcohol Use History: Rare Past Drug Use History: None Reported - Past Family History Father Family Medical History: No Reported History Medications and Allergies Home Medications Medication Instructions Recorded Confirmed Type Atorvastatin Calcium 20 mg PO HS 05/17/24 05/22/24 History Acetaminophen Tab [Tylenol] 1,000 mg PO Q6HR PRN 05/22/24 05/22/24 History Aspirin [Adult Low Dose Aspirin EC] 81 mg PO BID #60 tab 05/24/24 Rx HYDROcodone/APAP 7.5-325MG [[place] 1 each PO Q4HR PRN #42 tab 05/24/24 Rx 7.5] Sennosides/Docusate Sodium 2 each PO DAILY PRN #30 tablet 05/24/24 Rx [Senna-S 8.6-50 mg Tablet] Allergies Allergy/AdvReac Type Severity Reaction Status Date / Time No Known Allergies Allergy Verified 07/04/24 12:16 Physical Examination Right lower extremity: The incision is well-healing over the anterior aspect of the knee. There was some erythema noted on the lateral midline region of the knee. The erythematous papular/vesicular rash had been improving throughout that extremity. Mild effusion present on the knee. Notable swelling with the right knee compared to the left lower extremity. There were no open draining lesions appreciated on the extremity Range of motion was very difficult to assess, she held the knee in almost a 30 degree flexed position. Both passive and active range of motion reproduce severe pain along the medial and lateral aspects and anterior part of the knee. Strength testing was not assessed Logroll maneuver of the extremity reproduce no groin pain. Plantarflexion, dorsiflexion, EHL, FHL are intact. The anterior and posterior compartments of both the upper and lower leg were soft and compressible. The calf was soft, no tenderness with palpation Sensory exam to light touch is intact throughout the extremity Dorsalis pedis pulses 2+ Results - Labs Labs: Abnormal Lab Results - Last 24 Hours (Table) 07/04/24 Range/Units 12:53 WBC 19.11 H (4.50-10.00) 10*3/uL MCV 76.9 L (80.0-97.0) fL MCH 24.9 L (27.0-32.0) pg MPV 9.4 L (9.5-12.2) fL Immature Gran # 0.19 H (0.00-0.04) 10*3/uL Neutrophils # 16.45 H (1.80-7.70) 10*3/uL Monocytes # 1.04 H (0.20-1.00) 10*3/uL Eosinophils # 0.00 L (0.04-0.35) 10*3/uL H & H 07/04/24 Range/Units 12:53 Hgb 12.4 (12.0-15.0) g/dL Hct 38.2 (37.2-46.3) % Result Diagrams: 07/04/24 12:53 Assessment and Plan Assessment: Right knee pain History of right total knee arthroplasty Bilateral upper and lower extremity skin rash, improving High concern for right knee periprosthetic infection Other medical comorbidity Plan: After discussion with Dr. Duron and patient and family in office, recommendation was for patient to be directly admitted to [facility] through the emergency room with plan for surgical intervention on 07/05/2024. Consent will be obtained for a right knee arthrotomy with irrigation and debridement, polyethylene liner exchange and antibiotic bead placement. Risk and benefits of the procedure were discussed with the patient, this to include but not exclude blood loss, worsening infection, neurovascular injury, development of blood clots, and adequate healing of soft tissues, need for subsequent surgery. Patient is in good understanding would like to proceed. N.p.o. after midnight Multiple lab tests have been ordered, this to include CBC, CMP, sed rate and CRP. Discussed with ER staff along with infectious disease we will hold off on starting IV antibiotics until cultures are obtained and surgery GI and DVT prophylaxis, will likely begin either aspirin or subcu medication after surgery Other medical specialty recommendations appreciated PT/OT after surgery Further recommendations to follow Time with Patient: Less than 30
[2024-07-04 14:00] LABS: C Reactive Protein 24.1 mg/dL (<1.0)
[2024-07-04] MEDS: HYDROcodone/APAP 5-325MG 1 EACH TAB PO PRN (16:39)
[2024-07-04] MEDS ORDERED: HYDROmorphone 2 MG/ML 1 ML SYRINGE IVP PRN (18:16)
[2024-07-04 18:40] LABS: Erythrocyte Sedimentation Rate >130 mm/Hr (0-30)
--- NOTE | 2024-07-04 20:25 | P.CONS ---
History of Present Illness - Reason for Consult Consult date: 07/04/24 Medical management - Chief Complaint Right knee pain - History of Present Illness Patient is a 63-year-old female with known history of hyperlipidemia and right total knee arthroplasty on 05/22/2024. Patient states that she has been doing well until 06/28/2024. She developed rash while in the bilateral upper and lower extremities. She was started on prednisone tapering course. Patient presented to orthopedic surgery office with complaints of significant pain in hip right knee and increased swelling and some redness over the suture site. There is also having decreased range of motion. Patient states that she was having both 3-4 episodes and also severe shaking chills. Symptoms were concerning for periprosthetic infection involving the right knee and she was advised to go to ER. Arthrocentesis was attempted while in the ER. Laboratory data showed WBC 19.1 hemoglobin 12.4 and platelets 408 MCV 76 point Sodium 134 potassium 5.4 with slight hemolysis chloride 99 bicarb is 22 BUN 18 and creatinine 0.56 and blood sugar 132 AST 47 ALT 44 and alk phos 192 and CRP 24.1. Blood culture was sent from the ER. Review of Systems Constitutional: Patient did complain of fever and chills at home.. No generalized weakness or weight loss. Abdomen: Patient nausea and vomiting. No diarrhea no abdominal pain. No abdominal pain. Cardiovascular: Patient denies any chest pain or short of breath no palpitations. Respiratory: patient denied any cough or sputum production. No shortness of breath Neurologic: Patient denied any numbness or tingling. no headache. Musculoskeletal: Patient denies any complaints of joint swelling or deformity. Right knee pain and swelling and redness Skin: Negative Psychiatric: Negative Endocrine: No heat or cold intolerance. No recent weight gain. Genitourinary: No dysuria or hematuria. All other 14 point ROS negative except the above Past Medical History Past Medical History: Hyperlipidemia History of Any Multi-Drug Resistant Organisms: None Reported Past Surgical History: Hysterectomy, Joint Replacement, Orthopedic Surgery Additional Past Surgical History / Comment(s): lft partial knee Past Anesthesia/Blood Transfusion Reactions: No Reported Reaction Past Psychological History: No Psychological Hx Reported Smoking Status: Never smoker Past Alcohol Use History: Rare Past Drug Use History: None Reported - Past Family History Father Family Medical History: No Reported History Medications and Allergies Home Medications Medication Instructions Recorded Confirmed Type Aspirin [Adult Low Dose Aspirin EC] 81 mg PO HS 07/04/24 07/04/24 History Atorvastatin [Lipitor] 40 mg PO HS 07/04/24 07/04/24 History HYDROcodone/APAP 7.5-325MG [[place] 1 tab PO Q4HR PRN 07/04/24 07/04/24 History 7.5] predniSONE See Taper PO DIRECTED 07/04/24 07/04/24 History Allergies Allergy/AdvReac Type Severity Reaction Status Date / Time No Known Allergies Allergy Verified 07/04/24 12:16 Physical Exam Vitals: Vital Signs Temp Pulse Resp BP Pulse Ox 07/04/24 13:16 75 12 157/78 98 07/04/24 12:14 98 F 88 16 156/84 97 Intake and Output 07/03/24 07/04/24 07/04/24 22:59 06:59 14:59 Other: Weight 110.223 kg PHYSICAL EXAMINATION: Patient is lying in the bed comfortably, no acute distress, awake alert and oriented.. HEENT: Normocephalic. Neck is supple. Pupils reactive. Nostrils clear. Oral cavity is moist. Neck reveals no JVD, carotid bruits, or thyromegaly. CHEST EXAMINATION: Trachea is central. Symmetrical expansion. Lung orozco clear to auscultation and percussion. CARDIAC: Normal S1, S2 with no gallops. No murmurs ABDOMEN: Soft. Bowel sounds normal. No organomegaly. No abdominal bruits. Extremities: reveal no edema. Right knee swelling and decreased range of motion with redness over the surgical site. No discharge or open wound. No clubbing or cyanosis Neurologically awake, alert, oriented x3 with well-coordinated movements. No focal deficits noted Skin: No rash or skin lesions. Psychiatric: Coperative. Nonsuicidal Musculoskeletal: No joint swelling or deformity. Right knee decreased range of motion Results CBC & Chem 7: 07/04/24 12:53 07/04/24 12:53 Labs: Abnormal Lab Results - Last 24 Hours (Table) 07/04/24 07/04/24 Range/Units 12:53 12:53 WBC 19.11 H (4.50-10.00) 10*3/uL MCV 76.9 L (80.0-97.0) fL MCH 24.9 L (27.0-32.0) pg MPV 9.4 L (9.5-12.2) fL Immature Gran # 0.19 H (0.00-0.04) 10*3/uL Neutrophils # 16.45 H (1.80-7.70) 10*3/uL Monocytes # 1.04 H (0.20-1.00) 10*3/uL Eosinophils # 0.00 L (0.04-0.35) 10*3/uL Sodium 134 L (137-145) mmol/L Potassium 5.4 H (3.5-5.1) mmol/L BUN 18 H (7-17) mg/dL Glucose 132 H (74-99) mg/dL AST 47 H (14-36) U/L ALT 44 H (4-34) U/L Alkaline Phosphatase 192 H (38-126) U/L C-Reactive Protein 24.1 H (<1.0) mg/dL Assessment and Plan Assessment: Right knee swelling, pain and decreased range of motion left with redness over the surgical site. Possible periprosthetic infection cannot be excluded. Leukocytosis likely due to above and patient is also on prednisone tapering course. History of right total knee arthroplasty on 05/22/2024 Hypovolemic hyponatremia Mild hyperkalemia. Hemolyzed sample. Elevated liver enzymes DVT prophylaxis heparin subcu Plan: Patient will be continued on gentle IV hydration. Blood cultures were sent from the ER. Orthopedic surgery is planning for OR tomorrow. Continue with pain management. Aspirin will be on hold. ID and orthopedic surgery is on board. Follow-up repeat CMP and CBC with differential. Will continue to follow and further recommendations based on clinical course. Thank you kindly for your consult. Time with Patient: Greater than 30
[2024-07-04] MEDS ORDERED: ASPIRIN 81 MG PO SCH (21:00)
--- NOTE | 2024-07-04 21:33 | P.CONS ---
History of Present Illness - Reason for Consult Consult date: 07/04/24 Knee infection Requesting physician: Humberto Harris - Chief Complaint Right knee pain swelling x days - History of Present Illness Patient is a 63-year-old female with past medical history of confirmed hyperlipidemia osteoarthritis in this patient who is status post right knee arthroplasty completed on 05/22/2024 patient subsequently was doing well however has been recently evaluated outpatient setting for evaluation of a rash developing to the lower extremity that has been treated with a course of oral prednisone and the patient symptom has improved patient mention she was undergoing physical therapy with the last physical therapy on Wednesday with some of the adhesions were broken up by the therapist subsequently patient noticed to having chills increasing pain and swelling to the right knee area to the point that she was unable to bear any weight on it patient has been describing the pain to be sharp moderate to severe intensity without radiation with associated swelling no significant redness or any drainage did have some chills but denies high-grade fever patient has been evaluated the outpatient setting by orthopedics and they are not able to aspirate any fluid out however there was concern for possible septic arthritis but the patient had been sent to the hospital on arrival to the ER the patient was afebrile no fever have recorded subsequently patient was not tachycardic hypotensive or hypoxic she did have white count 19.1 creatinine 0.56 liver enzymes are elevated CRP is 24.1 blood cultures obtained which are currently pending patient has been admitted to hospital infectious was consulted for further management of antibiotic therapy Review of Systems Positive point and negatives has been mentioned in the HPI, complete review of systems was performed and all other systems are negative Past Medical History Past Medical History: Hyperlipidemia History of Any Multi-Drug Resistant Organisms: None Reported Past Surgical History: Hysterectomy, Joint Replacement, Orthopedic Surgery Additional Past Surgical History / Comment(s): lft partial knee Past Anesthesia/Blood Transfusion Reactions: No Reported Reaction Past Psychological History: No Psychological Hx Reported Smoking Status: Never smoker Past Alcohol Use History: Rare Past Drug Use History: None Reported - Past Family History Father Family Medical History: No Reported History Medications and Allergies Home Medications Medication Instructions Recorded Confirmed Type Aspirin [Adult Low Dose Aspirin EC] 81 mg PO HS 07/04/24 07/04/24 History Atorvastatin [Lipitor] 40 mg PO HS 07/04/24 07/04/24 History HYDROcodone/APAP 7.5-325MG [[place] 1 tab PO Q4HR PRN 07/04/24 07/04/24 History 7.5] predniSONE See Taper PO DIRECTED 07/04/24 07/04/24 History Allergies Allergy/AdvReac Type Severity Reaction Status Date / Time No Known Allergies Allergy Verified 07/04/24 12:16 Physical Exam Vitals: Vital Signs Temp Pulse Resp BP Pulse Ox 07/04/24 13:16 75 12 157/78 98 07/04/24 12:14 98 F 88 16 156/84 97 Intake and Output 07/03/24 07/04/24 07/04/24 22:59 06:59 14:59 Other: Weight 110.223 kg GENERAL DESCRIPTION: Middle-age female lying in bed, no distress. No tachypnea or accessory muscle of respiration use. HEENT: Shows Pallor , no scleral icterus. Oral mucous membrane is dry. No pharyngeal erythema or thrush NECK: Trachea central, no thyromegaly. LUNGS: Unlabored breathing. Clear to auscultation anteriorly. No wheeze or crackle. HEART: S1, S2, regular rate and rhythm. No loud murmur ABDOMEN: Soft, no tenderness , guarding or rigidity, no organomegaly EXTREMITIES: Right knee did have significant swelling incision is intact no re dness or significant warmth was noticed SKIN: No rash, no masses palpable. NEUROLOGICAL: The patient is awake, alert, oriented x3, mood and affect normal. Results CBC & Chem 7: 07/04/24 12:53 07/04/24 12:53 Labs: Abnormal Lab Results - Last 24 Hours (Table) 07/04/24 Range/Units 12:53 WBC 19.11 H (4.50-10.00) 10*3/uL MCV 76.9 L (80.0-97.0) fL MCH 24.9 L (27.0-32.0) pg MPV 9.4 L (9.5-12.2) fL Immature Gran # 0.19 H (0.00-0.04) 10*3/uL Neutrophils # 16.45 H (1.80-7.70) 10*3/uL Monocytes # 1.04 H (0.20-1.00) 10*3/uL Eosinophils # 0.00 L (0.04-0.35) 10*3/uL Assessment and Plan (1) Leukocytosis Current Visit: Yes Status: Acute Code(s): D72.829 - ELEVATED WHITE BLOOD C ELL COUNT, UNSPECIFIED SNOMED Code(s): 517093472 (2) Septic arthritis Current Visit: Yes Status: Acute Code(s): M00.9 - PYOGENIC ARTHRITIS, UNSPECIFIED SNOMED Code(s): 888835842 Plan: 1patient presented to hospital with significant pain swelling to the right knee area in this patient who did have some chills but did not have any fever she did have elevated white count which could be related to steroids the patient has been on courses concerning for possible infection to the right knee area which cannot be done excluded. 2as the patient does not look toxic we will hold on adding any empiric antibiotic therapy to increase the yield of any culture that has been planned for tomorrow this has been discussed with the orthopedic PA. 3 Once surgery is completed she will be empirically started on vancomycin and cefepime pending culture finalization. 4blood culture has been obtained check inflammatory markers. Question concern answered. We will follow on clinical condition and cultures to further adjust medication if needed Thank you for this consultation we will follow the patient along with you Dictation was produced using [employer] dictation software. please excuse any grammatical, word or spelling errors. Time with Patient: Greater than 30
[2024-07-04] MEDS: ATORVASTATIN 40 MG TAB PO SCH (21:37)
[2024-07-04] MEDS: HYDROmorphone 0.5 MG/0.5 ML SYRINGE IVP PRN (21:37)
[2024-07-04] MEDS: SODIUM CHLORIDE 0.9% 1,000 ML IV SCH (21:38)
[2024-07-05] MEDS: HEPARIN SODIUM,PORCINE 5,000 UNIT/ML 1 ML VIAL SQ SCH (00:01)
[2024-07-05 08:36] LABS: % Iron Saturation 5.88 (12.00-45.00); ALT 97 U/L (8-44); AST 72 U/L (13-35); Albumin 3.3 g/dL (3.8-4.9); Albumin/Globulin Ratio 1.27 Ratio (1.60-3.17); Alkaline Phosphatase 236 U/L (41-126); BUN/Creat Ratio 30.17 Ratio (12.00-20.00); Blood Urea Nitrogen 18.1 mg/dL (9.0-27.0); Calcium 8.8 mg/dL (8.7-10.3); Carbon Dioxide 23.1 mmol/L (21.6-31.8); Chloride 100 mmol/L (96-109); Globulin 2.6 g/dL (1.6-3.3); Glucose 120 mg/dL (70-110); HCT 34.5 % (37.2-46.3); HGB 10.6 g/dL (12.0-15.0); Iron 13 UG/DL (50-170); MCH 24.7 pg (27.0-32.0); MCHC 30.7 g/dL (32.0-37.0); MCV 80.2 FL (80.0-97.0); Mean Platelet Volume 9.7 FL (9.5-12.2); NRBC Per 100 WBC 0 X 10*3/uL (0.00-0.01); Platelet Count 392 X 10*3/uL (140-440); Potassium 4.1 mmol/L (3.5-5.5); Sodium 135 mmol/L (135-145); Total Bilirubin 0.4 mg/dL (0.3-1.2); Total Iron Binding Capacity 221 UG/DL (228-460); Total Protein 5.9 g/dL (6.2-8.2); WBC 18.15 X 10*3/uL (4.50-10.00)
[2024-07-05 09:13] LABS: Basophils # (A) 0.05 X 10*3/uL (0.00-0.10); Basophils % (A) 0.3 %; Eosinophils # (A) 0.16 X 10*3/uL (0.04-0.35); Eosinophils % (A) 0.9 %; Lymphocytes # (A) 2.96 X 10*3/uL (0.90-5.00); Lymphocytes % (A) 16.3 %; Monocytes # (A) 1.65 X 10*3/uL (0.20-1.00); Monocytes % (A) 9.1 %; Neutrophils # (A) 13.17 X 10*3/uL (1.80-7.70); Neutrophils % (A) 72.5 %
[2024-07-05] MEDS: IV FLUID CONTINUATION 1,000 ML IV ONE (10:21)
[2024-07-05] MEDS: fentaNYL (PF) 50 MCG/ML 2 ML AMP IVP STA (11:26)
[2024-07-05] MEDS: MIDAZOLAM 2 MG/2 ML VIAL IV ONE (11:26)
[2024-07-05] MEDS: TOBRAMYCIN SULFATE 1.2 GM VIAL MISCELLANE ONE ×2 (11:32→11:57)
[2024-07-05] MEDS: VANCOMYCIN 1,000 MG VIAL MISCELLANE ONE ×2 (11:33→11:57)
[2024-07-05] MEDS ORDERED: SUCCINYLCHOLINE CHLORIDE 200 MG/10 ML VIAL IV ONE (11:34)
[2024-07-05] MEDS ORDERED: HYDROmorphone (PF) 1 MG/ML ONE (11:34)
[2024-07-05] MEDS ORDERED: GLYCOPYRROLATE 0.2 MG/ML 2 ML VIAL ONE (11:34)
[2024-07-05] MEDS ORDERED: MIDAZOLAM 2 MG/2 ML VIAL ONE (11:34)
[2024-07-05] MEDS ORDERED: PROPOFOL 10 MG/ML 20 ML VIAL IV ONE (11:34)
[2024-07-05] MEDS ORDERED: ROPIVACAINE 5 MG/ML 30 ML VIAL ONE (11:34)
[2024-07-05] MEDS ORDERED: ROCURONIUM 10 MG/ML (5 ML VIAL) IV ONE (11:34)
[2024-07-05] MEDS ORDERED: NEOSTIGMINE 1 MG/ML 10 ML VIAL ONE (11:34)
[2024-07-05] MEDS ORDERED: LIDOCAINE 1% INJ 10MG/ML (20 ML MDV) ONE (11:34)
[2024-07-05] MEDS ORDERED: fentaNYL (PF) 50 MCG/ML 2 ML AMP ONE (11:34)
[2024-07-05] MEDS: ceFAZolin 3,000 MG in SODIUM CHLORIDE 0.9% IRRIGATIO 3,000 ML IRRIGATION ONE (11:41)
--- NOTE | 2024-07-05 12:31 | P.ANPRN ---
Procedure Note - Anesthesia - Nerve Block Performed Right Adductor Canal Single Time Out Performed: Yes (1125) Date of Procedure: 07/05/24 Procedure Start Time: Procedure Stop Time: Location of Patient: PreOp Indication: Acute Post-Operative Pain, Requested by Surgeon Specifically requested for management of pain by DrSusana: Sander Duron Sedation Type: Sedate with meaningful contact maintained Preparation: Sterile Prep Position: Supine Catheter: None Needle Types: Pajunk Needle Gauge: 21 Ultrasound used to visualize needle placement: Yes Ultrasound used to observe medication spread: Yes Injectate: 0.5% Ropivacaine (see comment for volume) (30cc) Blood Aspirated: No Pain Paresthesia on Injection Noted: No Resistance on Injection: Normal Image Stored and Saved: Yes Events: Uneventful and Well Tolerated
--- NOTE | 2024-07-05 13:02 | P.OP ---
Date of Procedure: 07/05/24 Preoperative Diagnosis: Right knee periprosthetic joint infection Postoperative Diagnosis: Right knee periprosthetic joint infection Procedure(s) Performed: Right knee arthrotomy with irrigation, debridement, polyethylene exchange and antibiotic bead placement Implants: DePuy attune size 6 fixed-bearing 6 mm polyethylene tibial tray Anesthesia: RUSSELL Surgeon: Sander Duron Hay Buckler #1: Ermias Lozada Estimated Blood Loss (ml): 40 Pathology: other (Cultures) Condition: stable Disposition: PACU Indications for Procedure: 63-year-old patient who was seen in the office yesterday with increasing pain, inability to weight-bear right lower extremity history of total knee arthroplasty about a month ago. I discussed my concern for a periprosthetic joint infection. I recommended arthrotomy with irrigation, debridement polyethylene exchange and antibiotic bead placement. Patient was agreeable. Consent was obtained. Operative Findings: See description of procedure Description of Procedure: Patient was taken to the operative suite. Patient underwent a general anesthetic by the department of anesthesia. Well-padded tourniquet placed proximal right lower extremity. Right lower extremity prepped and draped in the normal sterile fashion. We elevated the extremities for the tourniquet to 300. I made an incision through previous cicatrix sharply through skin. I dissected down to the extensor mechanism. I immediately encountered purulent fluid. Cultures were obtained. I noted a defect in the lateral capsule area. Identified the previous medial arthrotomy and made an incision through the medial arthrotomy. I again encountered more purulent fluid and additional cultures were obtained. At this point IV antibiotics were administered. I now used a 15 blade to perform an excisional debridement of the synovial tissue within the joint itself. I now flexed the knee and removed the polyethylene tibial tray. I now again utilized a 15 blade to perform an excisional debridement of additional synovial tissue tissue encountered. I now removed any residual Ethibond suture material I now irrigated the joint out utilizing pulse lavage irrigation and 3000 cc of irrigant. I now flushed the wound with a Betadine/saline mixture. That was evacuated. The joint was again irrigated with pulse lavage irrigation. I now placed Irrisept within the joint and let it sit there for several minutes. And I evacuated the Irrisept. I now explored the wound and noted no residual abnormal looking tissue. We now removed all the instruments that were utilized for the initial procedure. All operative participants changed their gloves. I now irrigated the wound out again with Irrisept and let it sit there for several more minutes. The Irrisept was evacua lisa. The components were explored and were found to be stable. At this point and new DePuy attune polyethylene tibial tray was locked in the place. I took the knee through range of motion was stable. The tourniquet was released and additional hemostasis achieved electrocautery as well as utilizing Surgicel powder. We now placed antibiotic beads throughout the knee. We now repaired the extensor mechanism with #1 Ethibond. I checked that repair with range of motion it was stable. The subcutaneous soft tissues were repaired with Vicryl. The skin was repaired with skin bayron. Sterile dressings were applied followed by Webril and Marcell bandage. The patient was awakened, transferred to recovery in stable condition having tolerated procedure well. Geoffrey BECK assisted in all aspects of this procedure.
[2024-07-05] MEDS ORDERED: HYDROmorphone 0.5 MG/0.5 ML SYRINGE IVP PRN (13:03)
[2024-07-05] MEDS ORDERED: NALOXONE 0.4 MG/ML 1 ML VIAL IV PRN (13:03)
[2024-07-05] MEDS: HYDROmorphone 0.5 MG/0.5 ML SYRINGE IVP PRN (13:42)
[2024-07-05] MEDS: SODIUM CHLORIDE 0.9% 1,000 ML IV SCH (15:03)
[2024-07-05] MEDS ORDERED: VANCOMYCIN IV PER PHARMACY 1 EACH MISC MISCELLANE PRN (15:27)
[2024-07-05] MEDS: VANCOMYCIN 1,750 MG in SODIUM CHLORIDE 0.9% 500 ML 500 ML IVPB SCH (16:40)
[2024-07-05] MEDS ORDERED: ceFAZolin 2 GM in DEXTROSE 5% IN WATER 50 ML IVPB SCH (18:00)
--- NOTE | 2024-07-05 20:25 | P.PN ---
Subjective Patient is a 63-year-old female with known history of hyperlipidemia and right total knee arthroplasty on 05/22/2024. Patient states that she has been doing well until 06/28/2024. She developed rash while in the bilateral upper and lower extremities. She was started on prednisone tapering course. Patient presented to orthopedic surgery office with complaints of significant pain in hip right knee and increased swelling and some redness over the suture site. There is also having decreased range of motion. Patient states that she was having both 3-4 episodes and also severe shaking chills. Symptoms were concerning for periprosthetic infection involving the right knee and she was advised to go to ER. Arthrocentesis was attempted while in the ER. Laboratory data showed WBC 19.1 hemoglobin 12.4 and platelets 408 MCV 76 point Sodium 134 potassium 5.4 with slight hemolysis chloride 99 bicarb is 22 BUN 18 and creatinine 0.56 and blood sugar 132 AST 47 ALT 44 and alk phos 192 and CRP 24.1. Blood culture was sent from the ER. 07/05 Patient s/p right knee arthrotomy and debridement with irrigation and antibiotic bead placement. Today's postop day #0 Postoperatively patient is sleepy. Complains from pain in her right knee. No chest pain or dyspnea. Vital stable She has leukocytosis 19.1 down to 18.1 Liver enzymes slightly worse. Hemoglobin dropped 12.4 down to 10.6 Aspirin is placed on hold. Con normal sinus 75 mL/h Patient started on IV antibiotics with cefepime and IV vancomycin per ID team Blood cultures pending Male Family member at bedside and questions answered Active Medications Generic Name Dose Route Start Last Admin Trade Name Freq PRN Reason Stop Dose Admin Acetaminophen 650 mg 07/04/24 13:05 Acetaminophen Tab 325 Mg Tab PO Q6HR PRN Mild Pain or Fever > 100.5 Hydrocodone Bitart/Acetaminophen 1 each 07/04/24 13:05 07/05/24 16:47 Hydrocodone/Apap 5-325mg 1 Each Tab PO 1 each Q4HR PRN Administration Moderate Pain (Scale 4 to 6) Atorvastatin Calcium 40 mg 07/04/24 21:00 07/04/24 21:37 Atorvastatin 40 Mg Tab PO 40 mg HS ADONIS Administration Heparin Sodium (Porcine) 5,000 unit 07/05/24 00:00 07/05/24 15:50 Heparin Sodium,Porcine 5,000 Unit/Ml 1 Ml Vial SQ 5,000 unit Q8HR ADONIS Administration Hydromorphone HCl 0.25 mg 07/05/24 13:03 Hydromorphone 0.5 Mg/0.5 Ml Syringe IVP Q3HR PRN Pain Scale 1 to 3 Hydromorphone HCl 1 mg 07/05/24 13:03 Hydromorphone 2 Mg/Ml 1 Ml Syringe IVP Q3HR PRN Pain Scale 7 to 10 Hydromorphone HCl 0.5 mg 07/05/24 13:03 07/05/24 19:01 Hydromorphone 0.5 Mg/0.5 Ml Syringe IVP 0.5 mg Q3HR PRN Administration Pain Scale 4 to 6 Sodium Chloride 1,000 mls @ 75 mls/hr 07/04/24 20:30 07/05/24 09:30 Saline 0.9% IV Not Given .[id number] ADONIS Sodium Chloride 1,000 mls @ 100 mls/hr 07/05/24 13:15 07/05/24 15:03 Saline 0.9% IV 100 mls/hr .Q10H ADONIS Administration Cefepime HCl 2 gm/ Dextrose/ 100 mls @ 25 mls/hr 07/05/24 16:00 07/05/24 15:50 Water IVPB 25 mls/hr Q8HR ADONIS Administration Protocol Vancomycin HCl 1,750 mg/ 500 mls @ 167 mls/hr 07/05/24 17:00 07/05/24 16:40 Sodium Chloride IVPB 167 mls/hr Q12H ADONIS Administration Naloxone HCl 0.2 mg 07/05/24 13:03 Naloxone 0.4 Mg/Ml 1 Ml Vial IV Q2M PRN Opioid Reversal Ondansetron HCl 4 mg 07/04/24 21:33 07/05/24 09:48 Ondansetron 4 Mg/2 Ml Vial IVP 4 mg Q6HR PRN Administration Nausea And Vomiting Objective - Vital Signs Vital signs: Vital Signs Temp 98 F 07/05/24 14:45 Pulse 77 07/05/24 15:45 Resp 19 07/05/24 14:45 BP 144/80 07/05/24 15:45 Pulse Ox 97 07/05/24 15:45 FiO2 Intake & Output 07/05/24 07/05/24 07/06/24 06:59 18:59 06:59 Intake Total 851 Output Total 40 Balance 811 Intake: IV 851 Output: Estimated Blood Loss 40 Other: Voiding Method Toilet Toilet # Voids 3 - Exam GENERAL: The patient is alert and oriented x3, not in any acute distress. Well developed, well nourished. HEENT: Pupils are round and equally reacting to light. EOMI. No scleral icterus. No conjunctival pallor. Normocephalic, atraumatic. No pharyngeal erythema. No thyromegaly. CARDIOVASCULAR: S1 and S2 present. No murmurs, rubs, or gallops. PULMONARY: Chest is clear to auscultation, no wheezing , no crackles. ABDOMEN: Soft, nontender, nondistended, normoactive bowel sounds. No palpable organomegaly. MUSCULOSKELETAL: No joint swelling or deformity. -EXTREMITIES: No cyanosis, clubbing, or pedal edema. Right lower extremity is all covered with Marcell bandage NEUROLOGICAL: Gross neurological examination did not reveal any focal deficits. SKIN: No rashes. no petechiae. - Labs CBC & Chem 7: 07/05/24 03:04 07/05/24 03:04 Labs: Abnormal Lab Results - Last 24 Hours (Table) 07/05/24 07/05/24 Range/Units 03:04 03:04 WBC 18.15 H (4.50-10.00) X 10*3/uL Hgb 10.6 L (12.0-15.0) g/dL Hct 34.5 L (37.2-46.3) % MCH 24.7 L (27.0-32.0) pg MCHC 30.7 L (32.0-37.0) g/dL RDW 15.0 H (11.5-14.5) % Immature Gran # 0.16 H (0.00-0.04) X 10*3/uL Neutrophils # 13.17 H (1.80-7.70) X 10*3/uL Monocytes # 1.65 H (0.20-1.00) X 10*3/uL BUN/Creatinine Ratio 30.17 H (12.00-20.00) Ratio Glucose 120 H (70-110) mg/dL Iron 13 L (50-170) UG/DL TIBC 221 L (228-460) UG/DL % Saturation 5.88 L (12.00-45.00) Transferrin 158.0 L (204.0-354.0) mg/dL AST 72 H (13-35) U/L ALT 97 H (8-44) U/L Alkaline Phosphatase 236 H (41-126) U/L Total Protein 5.9 L (6.2-8.2) g/dL Albumin 3.3 L (3.8-4.9) g/dL Albumin/Globulin Ratio 1.27 L (1.60-3.17) Ratio Assessment and Plan Assessment: Right knee swelling, pain and decreased range of motion left with redness over the surgical site. Possible periprosthetic infection cannot be excluded. Leukocytosis likely due to above and patient is also on prednisone tapering course. History of right total knee arthroplasty on 05/22/2024 Hypovolemic hyponatremia Mild hyperkalemia. Hemolyzed sample. Elevated liver enzymes Plan: Continue with normal saline Continue with postop care and pain management Orthopedic primary team following closely Continue with IV antibiotic as per ID team recommendation. Currently on IV cefepime and IV vancomycin Follow-up culture results Resume home medication Further recommendation based on clinical course GI prophylaxis DVT prophylaxis Prognosis is guarded
[2024-07-05] MEDS: FAMOTIDINE 20 MG/2 ML VIAL IV SCH (20:49)
[2024-07-05] MEDS: HYDROmorphone 2 MG/ML 1 ML SYRINGE IVP PRN (21:42)
[2024-07-06] MEDS: HYDROcodone/APAP 7.5-325MG 1 EACH TAB PO PRN (00:25)
[2024-07-06 05:38] LABS: ALT 49 U/L (4-34); AST 25 U/L (14-36); African American GFR (CKD) >90 (>60 ml/min/1.73 sqM); Albumin 2.8 g/dL (3.5-5.0); Alkaline Phosphatase 186 U/L (38-126); Bilirubin,Unconjugated 0.5 mg/dL (0.0-1.1); Globulin 2.8 g/dL; Non-African American GFR(CKD) >90 (>60 ml/min/1.73 sqM); Total Bilirubin 0.7 mg/dL (0.2-1.3); Total Protein 5.6 g/dL (6.3-8.2)
[2024-07-06 08:35] LABS: Basophils # (A) 0.07 X 10*3/uL (0.00-0.10); Basophils % (A) 0.4 %; Eosinophils # (A) 0.26 X 10*3/uL (0.04-0.35); Eosinophils % (A) 1.4 %; HCT 31.6 % (37.2-46.3); HGB 9.8 g/dL (12.0-15.0); Lymphocytes # (A) 2.91 X 10*3/uL (0.90-5.00); Lymphocytes % (A) 15.2 %; MCH 24.8 pg (27.0-32.0); Mean Platelet Volume 9.8 FL (9.5-12.2); Monocytes # (A) 1.85 X 10*3/uL (0.20-1.00); Monocytes % (A) 9.7 %; NRBC Per 100 WBC 0 X 10*3/uL (0.00-0.01); Neutrophils # (A) 13.76 X 10*3/uL (1.80-7.70); Neutrophils % (A) 71.6 %; Platelet Count 390 X 10*3/uL (140-440); RBC 3.95 X 10*6/uL (4.10-5.20); RDW 14.8 % (11.5-14.5); WBC 19.17 X 10*3/uL (4.50-10.00)
--- NOTE | 2024-07-06 10:06 | P.PN ---
Subjective Patient is a 63-year-old female with known history of hyperlipidemia and right total knee arthroplasty on 05/22/2024. Patient states that she has been doing well until 06/28/2024. She developed rash while in the bilateral upper and lower extremities. She was started on prednisone tapering course. Patient presented to orthopedic surgery office with complaints of significant pain in hip right knee and increased swelling and some redness over the suture site. There is also having decreased range of motion. Patient states that she was having both 3-4 episodes and also severe shaking chills. Symptoms were concerning for periprosthetic infection involving the right knee and she was advised to go to ER. Arthrocentesis was attempted while in the ER. Laboratory data showed WBC 19.1 hemoglobin 12.4 and platelets 408 MCV 76 point Sodium 134 potassium 5.4 with slight hemolysis chloride 99 bicarb is 22 BUN 18 and creatinine 0.56 and blood sugar 132 AST 47 ALT 44 and alk phos 192 and CRP 24.1. Blood culture was sent from the ER. 07/05 Patient s/p right knee arthrotomy and debridement with irrigation and antibiotic bead placement. Today's postop day #0 Postoperatively patient is sleepy. Complains from pain in her right knee. No chest pain or dyspnea. Vital stable She has leukocytosis 19.1 down to 18.1 Liver enzymes slightly worse. Hemoglobin dropped 12.4 down to 10.6 Aspirin is placed on hold. Con normal sinus 75 mL/h Patient started on IV antibiotics with cefepime and IV vancomycin per ID team Blood cultures pending Male Family member at bedside and questions answered 07/06 Pain controlled in the right knee about 5/10, still on pain pump No other new complaint Sitting up in chair and eating her breakfast Remains on IV antibiotics with IV cefepime and IV vancomycin Wound culture from yesterday procedures pending. Plan of care discussed with the patient and she is agreeable Objective - Vital Signs Vital signs: Vital Signs Temp 98.2 F 07/06/24 06:55 Pulse 84 07/06/24 06:55 Resp 17 07/06/24 06:55 BP 135/78 07/06/24 06:55 Pulse Ox 92 L 07/06/24 06:55 FiO2 Intake & Output 07/05/24 07/06/24 07/06/24 18:59 06:59 18:59 Intake Total 851 450 Output Total 40 Balance 811 450 Intake: IV 851 Oral 450 Output: Estimated Blood Loss 40 Other: Voiding Method Toilet # Voids 4 2 - Exam GENERAL: The patient is alert and oriented x3, not in any acute distress. Well developed, well nourished. HEENT: Pupils are round and equally reacting to light. EOMI. No scleral icterus. No conjunctival pallor. Normocephalic, atraumatic. No pharyngeal erythema. No thyromegaly. CARDIOVASCULAR: S1 and S2 present. No murmurs, rubs, or gallops. PULMONARY: Chest is clear to auscultation, no wheezing , no crackles. ABDOMEN: Soft, nontender, nondistended, normoactive bowel sounds. No palpable organomegaly. MUSCULOSKELETAL: No joint swelling or deformity. -EXTREMITIES: No cyanosis, clubbing, or pedal edema. Right lower extremity is all covered with Marcell bandage NEUROLOGICAL: Gross neurological examination did not reveal any focal deficits. SKIN: No rashes. no petechiae. - Labs CBC & Chem 7: 07/06/24 04:56 07/06/24 04:56 Labs: Abnormal Lab Results - Last 24 Hours (Table) 07/06/24 07/06/24 Range/Units 04:56 04:56 WBC 19.17 H (4.50-10.00) X 10*3/uL RBC 3.95 L (4.10-5.20) X 10*6/uL Hgb 9.8 L (12.0-15.0) g/dL Hct 31.6 L (37.2-46.3) % MCH 24.8 L (27.0-32.0) pg MCHC 31.0 L (32.0-37.0) g/dL RDW 14.8 H (11.5-14.5) % Immature Gran # 0.32 H (0.00-0.04) X 10*3/uL Neutrophils # 13.76 H (1.80-7.70) X 10*3/uL Monocytes # 1.85 H (0.20-1.00) X 10*3/uL ALT 49 H (4-34) U/L Alkaline Phosphatase 186 H (38-126) U/L Total Protein 5.6 L (6.3-8.2) g/dL Albumin 2.8 L (3.5-5.0) g/dL Microbiology - Last 24 Hours (Table) 07/04/24 12:53 Blood Culture - Preliminary Blood Assessment and Plan Assessment: Right knee swelling, pain and decreased range of motion left with redness over the surgical site. Possible periprosthetic infection cannot be excluded. Leukocytosis likely due to above and patient is also on prednisone tapering course. History of right total knee arthroplasty on 05/22/2024 Hypovolemic hyponatremia Mild hyperkalemia. Hemolyzed sample. Elevated liver enzymes Plan: Continue with IV antibiotic as per ID team recommendation. Currently on IV cefepime and IV vancomycin Follow-up culture results, blood culture and wound culture Continue with postop care and pain management Orthopedic primary team following closely Resume home medication Further recommendation based on clinical course GI prophylaxis DVT prophylaxis Prognosis is guarded
--- NOTE | 2024-07-06 11:43 | P.PN ---
Subjective Progress Note Date: 07/05/24 Principal diagnosis: Reason for follow-up is right knee septic arthritis Patient is a 63-year-old female with past medical history of confirmed hyperlipidemia osteoarthritis in this patient who is status post right knee arthroplasty completed on 05/22/2024 no admitted to hospital concerning for right knee septic arthritis in this patient with status post Right knee arthrotomy with irrigation, debridement, polyethylene exchange and antibiotic bead placement. On today's evaluation that is 07/05/2024,the patient denies any fever or any chills, patient is breathing comfortably on room air, the patient denies chest pain shortness of breath and no significant cough, patient denies abdominal pain, no nausea vomiting or diarrhea. Still complaining of pain to the right knee though some controlled with pain medication. The patient white count is 18.15 creatinine 0.6 Objective - Vital Signs Vital signs: Vital Signs Temp 97.9 F 07/05/24 10:08 Pulse 89 07/05/24 11:33 Resp 17 07/05/24 11:33 BP 144/62 07/05/24 11:33 Pulse Ox 94 L 07/05/24 11:33 FiO2 Intake & Output 07/04/24 07/05/24 07/05/24 18:59 06:59 18:59 Intake Total 480 801 Output Total 40 Balance 480 761 Weight 110.223 kg Intake: IV 801 Oral 480 Output: Estimated Blood Loss 40 Other: Voiding Method Toilet Toilet # Voids 1 3 - Exam GENERAL DESCRIPTION: Middle aged female lying in bed in no distress RESPIRATORY SYSTEM: Unlabored breathing , decreased breath sounds at bases HEART: S1 S2 regular rate and rhythm , ABDOMEN: Soft , no tenderness EXTREMITIES: Right knee is currently dressed in OR dressing - Labs CBC & Chem 7: 07/06/24 04:56 07/06/24 04:56 Labs: Abnormal Lab Results - Last 24 Hours (Table) 07/04/24 07/04/24 07/05/24 Range/Units 12:53 12:53 03:04 WBC 19.11 H 18.15 H (4.50-10.00) 10*3/uL Hgb 10.6 L (12.0-15.0) g/dL Hct 34.5 L (37.2-46.3) % MCV 76.9 L (80.0-97.0) fL MCH 24.9 L 24.7 L (27.0-32.0) pg MCHC 30.7 L (32.0-37.0) g/dL RDW 15.0 H (11.5-14.5) % MPV 9.4 L (9.5-12.2) fL Immature Gran # 0.19 H 0.16 H (0.00-0.04) 10*3/uL Neutrophils # 16.45 H 13.17 H (1.80-7.70) 10*3/uL Monocytes # 1.04 H 1.65 H (0.20-1.00) 10*3/uL Eosinophils # 0.00 L (0.04-0.35) 10*3/uL ESR >130 H (0-30) mm/Hr Sodium 134 L (137-145) mmol/L Potassium 5.4 H (3.5-5.1) mmol/L BUN 18 H (7-17) mg/dL BUN/Creatinine Ratio (12.00-20.00) Ratio Glucose 132 H (74-99) mg/dL Iron (50-170) UG/DL TIBC (228-460) UG/DL % Saturation (12.00-45.00) Transferrin (204.0-354.0) mg/dL AST 47 H (14-36) U/L ALT 44 H (4-34) U/L Alkaline Phosphatase 192 H (38-126) U/L C-Reactive Protein 24.1 H (<1.0) mg/dL Total Protein (6.2-8.2) g/dL Albumin (3.8-4.9) g/dL Albumin/Globulin Ratio (1.60-3.17) Ratio // Range/Units 03:04 WBC (4.50-10.00) 10*3/uL Hgb (12.0-15.0) g/dL Hct (37.2-46.3) % MCV (80.0-97.0) fL MCH (27.0-32.0) pg MCHC (32.0-37.0) g/dL RDW (11.5-14.5) % MPV (9.5-12.2) fL Immature Gran # (0.00-0.04) 10*3/uL Neutrophils # (1.80-7.70) 10*3/uL Monocytes # (0.20-1.00) 10*3/uL Eosinophils # (0.04-0.35) 10*3/uL ESR (0-30) mm/Hr Sodium (137-145) mmol/L Potassium (3.5-5.1) mmol/L BUN (7-17) mg/dL BUN/Creatinine Ratio 30.17 H (12.00-20.00) Ratio Glucose 120 H (74-99) mg/dL Iron 13 L (50-170) UG/DL TIBC 221 L (228-460) UG/DL % Saturation 5.88 L (12.00-45.00) Transferrin 158.0 L (204.0-354.0) mg/dL AST 72 H (14-36) U/L ALT 97 H (4-34) U/L Alkaline Phosphatase 236 H (38-126) U/L C-Reactive Protein (<1.0) mg/dL Total Protein 5.9 L (6.2-8.2) g/dL Albumin 3.3 L (3.8-4.9) g/dL Albumin/Globulin Ratio 1.27 L (1.60-3.17) Ratio Assessment and Plan (1) Leukocytosis Current Visit: Yes Status: Acute Code(s): D72.829 - ELEVATED WHITE BLOOD CELL COUNT, UNSPECIFIED SNOMED Code(s): 483730440 (2) Septic arthritis Current Visit: Yes Status: Acute Code(s): M00.9 - PYOGENIC ARTHRITIS, UNSPECIFIED SNOMED Code(s): 688491185 Plan: 1patient presented to hospital with significant pain swelling to the right knee area in this patient who did have some chills but did not have any fever she did have elevated white count which could be related to steroids the patient has been on courses concerning for possible infection to the right knee area which cannot be done excluded. 2operative findings has been suggestive of septic arthritis with purulent drainage status post Right knee arthrotomy with irrigation, debridement, polyethylene exchange and antibiotic bead placement 3I will start the patient empirically on vancomycin and cefepime pending finalization of the culture Dictation was produced using [employer] software. please excuse any grammatical, word or spelling errors. Time with Patient: Less than 30
--- NOTE | 2024-07-06 11:45 | P.PN ---
Subjective Progress Note Date: 07/06/24 Principal diagnosis: Reason for follow-up is right knee septic arthritis Patient is a 63-year-old female with past medical history of confirmed hyperlipidemia osteoarthritis in this patient who is status post right knee arthroplasty completed on 05/22/2024 no admitted to hospital concerning for right knee septic arthritis in this patient with status post Right knee arthrotomy with irrigation, debridement, polyethylene exchange and antibiotic bead placement. On today's evaluation that is 07/06/2024, Patient is afebrile this morning patient denies having any chest pain shortness of breath or cough, the patient is currently on room air, patient denies any abdominal pain no diarrhea no nausea no vomiting pain to the right knee is currently controlled with the pain medication. Patient white count is 19.17, creatinine 0.66 cultures are currently pending Objective - Vital Signs Vital signs: Vital Signs Temp 98.2 F 07/06/24 06:55 Pulse 84 07/06/24 08:00 Resp 17 07/06/24 08:00 BP 135/78 07/06/24 06:55 Pulse Ox 92 L 07/06/24 06:55 FiO2 Intake & Output 07/05/24 07/06/24 07/06/24 18:59 06:59 18:59 Intake Total 851 450 Output Total 40 Balance 811 450 Intake: IV 851 Oral 450 Output: Estimated Blood Loss 40 Other: Voiding Method Toilet Toilet # Voids 4 2 - Exam GENERAL DESCRIPTION: Middle aged female lying in bed in no distress RESPIRATORY SYSTEM: Unlabored breathing , decreased breath sounds at bases HEART: S1 S2 regular rate and rhythm , ABDOMEN: Soft , no tenderness EXTREMITIES: Right knee is currently dressed in OR dressing - Labs CBC & Chem 7: 07/06/24 04:56 07/06/24 04:56 Labs: Abnormal Lab Results - Last 24 Hours (Table) 07/06/24 07/06/24 Range/Units 04:56 04:56 WBC 19.17 H (4.50-10.00) X 10*3/uL RBC 3.95 L (4.10-5.20) X 10*6/uL Hgb 9.8 L (12.0-15.0) g/dL Hct 31.6 L (37.2-46.3) % MCH 24.8 L (27.0-32.0) pg MCHC 31.0 L (32.0-37.0) g/dL RDW 14.8 H (11.5-14.5) % Immature Gran # 0.32 H (0.00-0.04) X 10*3/uL Neutrophils # 13.76 H (1.80-7.70) X 10*3/uL Monocytes # 1.85 H (0.20-1.00) X 10*3/uL ALT 49 H (4-34) U/L Alkaline Phosphatase 186 H (38-126) U/L Total Protein 5.6 L (6.3-8.2) g/dL Albumin 2.8 L (3.5-5.0) g/dL Microbiology - Last 24 Hours (Table) 07/04/24 12:53 Blood Culture - Preliminary Blood Assessment and Plan (1) Leukocytosis Current Visit: Yes Status: Acute Code(s): D72.829 - ELEVATED WHITE BLOOD CELL COUNT, UNSPECIFIED SNOMED Code(s): 525188328 (2) Septic arthritis Current Visit: Yes Status: Acute Code(s): M00.9 - PYOGENIC ARTHRITIS, UNSPECIFIED SNOMED Code(s): 881271236 Plan: 1patient presented to hospital with significant pain swelling to the right knee area in this patient who did have some chills but did not have any fever she did have elevated white count which could be related to steroids the patient has been on courses concerning for possible infection to the right knee area which cannot be done excluded. 2operative findings has been suggestive of septic arthritis with purulent drainage status post Right knee arthrotomy with irrigation, debridement, polyethylene exchange and antibiotic bead placement 3patient is currently being empirically treated with vancomycin and cefepime, with discharge antibiotic on the basis of final culture if the blood cultures are negative by tomorrow we will be able to place a PICC line discussed with the patient at the [facility] Dictation was produced using [employer] dictation software. please excuse any grammatical, word or spelling errors. Time with Patient: Less than 30
--- NOTE | 2024-07-06 12:37 | P.PN ---
Subjective Progress Note Date: 07/06/24 Principal diagnosis: Right knee periprosthetic infection Patient evaluated at bedside, she is up in her hospital chair. She is doing okay she states, that she has more of a burning pain over the anterior aspect of the knee near the incision. The Marcell bandage remains intact. We are awaiting culture and sensitivity results at this time. Patient remains on IV antibiotics. She denies headaches, lightheadedness, chest pain, shortness of breath, fever or chills. Objective - Vital Signs Vital signs: Vital Signs Temp 98.2 F 07/06/24 06:55 Pulse 84 07/06/24 08:00 Resp 17 07/06/24 08:00 BP 135/78 07/06/24 06:55 Pulse Ox 92 L 07/06/24 06:55 FiO2 Intake & Output 07/05/24 07/06/24 07/06/24 18:59 06:59 18:59 Intake Total 851 450 Output Total 40 Balance 811 450 Intake: IV 851 Oral 450 Output: Estimated Blood Loss 40 Other: Voiding Method Toilet Toilet # Voids 4 2 - Exam Right lower extremity: Marcell bandages in good position and condition. Her sensory exam to light touch throughout that extremity is intact. Her dorsalis pedis pulses 2+. Calf is soft, no tenderness with palpation. Sensation to light touch throughout the extremity is intact. - Labs CBC & Chem 7: 07/06/24 04:56 07/06/24 04:56 Labs: Abnormal Lab Results - Last 24 Hours (Table) 07/06/24 07/06/24 Range/Units 04:56 04:56 WBC 19.17 H (4.50-10.00) X 10*3/uL RBC 3.95 L (4.10-5.20) X 10*6/uL Hgb 9.8 L (12.0-15.0) g/dL Hct 31.6 L (37.2-46.3) % MCH 24.8 L (27.0-32.0) pg MCHC 31.0 L (32.0-37.0) g/dL RDW 14.8 H (11.5-14.5) % Immature Gran # 0.32 H (0.00-0.04) X 10*3/uL Neutrophils # 13.76 H (1.80-7.70) X 10*3/uL Monocytes # 1.85 H (0.20-1.00) X 10*3/uL ALT 49 H (4-34) U/L Alkaline Phosphatase 186 H (38-126) U/L Total Protein 5.6 L (6.3-8.2) g/dL Albumin 2.8 L (3.5-5.0) g/dL Microbiology - Last 24 Hours (Table) 07/04/24 12:53 Blood Culture - Preliminary Blood Assessment and Plan Assessment: Right knee periprosthetic infection Postoperative day #1 status post right knee arthrotomy with irrigation and debridement, polyethylene liner exchange and antibiotic bead placement Other medical comorbidities Plan: Pain control, continue with current medications GI DVT prophylaxis, continue with current medications Weight-bear as tolerated with walker Marcell bandage to be left in place at this time, will remove and change dressings on 07/07/2024 Ice and elevate the extremity often Encourage incentive spirometer Await culture and sensitivities Other medical specialty recommendations appreciated Discharge planning: Hopeful discharge by 07/08/2024 pending culture and sensitivity result Time with Patient: Less than 30
[2024-07-07 04:54] LABS: African American GFR (CKD) >90 (>60 ml/min/1.73 sqM); Non-African American GFR(CKD) >90 (>60 ml/min/1.73 sqM)
[2024-07-07] MEDS: VANCOMYCIN TROUGH DUE 1 EACH MISC MISCELLANE ONE (05:32)
--- NOTE | 2024-07-07 11:59 | P.PN ---
Subjective Progress Note Date: 07/07/24 Principal diagnosis: Right knee periprosthetic infection Patient evaluated at bedside, she is up in her hospital bed . Patient remains on IV antibiotics. She denies headaches, lightheadedness, chest pain, shortness of breath, fever or chills. Objective - Vital Signs Vital signs: Vital Signs Temp 98.6 F 07/07/24 06:50 Pulse 84 07/07/24 06:50 Resp 16 07/07/24 06:50 BP 118/71 07/07/24 06:50 Pulse Ox 94 L 07/07/24 06:50 FiO2 Intake & Output 07/06/24 07/07/24 07/07/24 18:59 06:59 18:59 Intake Total 2200 120 Balance 2200 120 Intake: Intake, IV Titration 600 Amount Cefepime 2 gm In Dextrose 100 5% in Water 100 ml @ 25 mls/hr IVPB Q8HR [facility] Rx#: [id number] Vancomycin 1,750 mg In 500 Sodium Chloride 0.9% 500 ml 500 ml @ 167 mls/hr IVPB Q12H [facility] Rx#: [id number] Oral 1600 120 Other: Voiding Method Toilet Bedside Commode # Voids 2 2 2 - Exam Right lower extremity: Marcell bandage removed at bedside, bayron are all in good position condition. No increase in erythema noted. No active drainage visualized from the incision. Her sensory exam to light touch throughout that extremity is intact. Her dorsalis pedis pulses 2+. Calf is soft, no tenderness with palpation. Sensation to light touch throughout the extremity is intact. - Labs CBC & Chem 7: 07/06/24 04:56 07/07/24 04:12 Labs: Microbiology - Last 24 Hours (Table) 07/05/24 12:03 Gram Stain - Preliminary Knee - Right Wound Culture - Preliminary Presumptive Staph aureus 07/05/24 12:02 Gram Stain - Preliminary Knee - Right Wound Culture - Preliminary Presumptive Staph aureus 07/04/24 12:53 Blood Culture - Preliminary Blood Assessment and Plan Assessment: Right knee periprosthetic infection Postoperative day #2 status post right knee arthrotomy with irrigation and debridement, polyethylene liner exchange and antibiotic bead placement Other medical comorbidities Plan: Pain control, [place] will be sent to her pharmacy today GI DVT prophylaxis, continue with current medications Weight-bear as tolerated with walker Monitor surgical dressing Ice and elevate the extremity often Encourage incentive spirometer Await culture and sensitivities Other medical specialty recommendations appreciated Discharge planning: Hopeful discharge by 07/08/2024 pending culture and sensitivity result Time with Patient: Less than 30
--- NOTE | 2024-07-07 15:33 | P.PN ---
Subjective Progress Note Date: 07/07/24 Principal diagnosis: Reason for follow-up is right knee septic arthritis Patient is a 63-year-old female with past medical history of confirmed hyperlipidemia osteoarthritis in this patient who is status post right knee arthroplasty completed on 05/22/2024 no admitted to hospital concerning for right knee septic arthritis in this patient with status post Right knee arthrotomy with irrigation, debridement, polyethylene exchange and antibiotic bead placement. On today's evaluation that is 07/07/2024, the patient is afebrile this morning did have a low-grade fever last evening, the patient is on room air and breathing comfortably, the Pt denies having any chest pain or cough, the patient denies having any abdominal pain no vomiting or any diarrhea and pain to the right knee is currently controlled. Patient did have a creatinine 0.55 Vanco trough is low at 11.4 culture with presumptive Staph aureus blood culture has been negative Objective - Vital Signs Vital signs: Vital Signs Temp 98.6 F 07/07/24 06:50 Pulse 84 07/07/24 06:50 Resp 16 07/07/24 06:50 BP 118/71 07/07/24 06:50 Pulse Ox 94 L 07/07/24 06:50 FiO2 Intake & Output 07/06/24 07/07/24 07/07/24 18:59 06:59 18:59 Intake Total 2200 120 Balance 2200 120 Intake: Intake, IV Titration 600 Amount Cefepime 2 gm In Dextrose 100 5% in Water 100 ml @ 25 mls/hr IVPB Q8HR [facility] Rx#: [id number] Vancomycin 1,750 mg In 500 Sodium Chloride 0.9% 500 ml 500 ml @ 167 mls/hr IVPB Q12H [facility] Rx#: [id number] Oral 1600 120 Other: Voiding Method Toilet Bedside Commode # Voids 2 2 2 - Exam GENERAL DESCRIPTION: Middle aged female lying in bed in no distress RESPIRATORY SYSTEM: Unlabored breathing , decreased breath sounds at bases HEART: S1 S2 regular rate and rhythm , ABDOMEN: Soft , no tenderness EXTREMITIES: Right knee is currently dressed in OR dressing - Labs CBC & Chem 7: 07/06/24 04:56 07/07/24 04:12 Labs: Microbiology - Last 24 Hours (Table) 07/05/24 12:03 Gram Stain - Preliminary Knee - Right Wound Culture - Preliminary Presumptive Staph aureus 07/05/24 12:02 Gram Stain - Preliminary Knee - Right Wound Culture - Preliminary Presumptive Staph aureus 07/04/24 12:53 Blood Culture - Preliminary Blood Assessment and Plan (1) Leukocytosis Current Visit: Yes Status: Acute Code(s): D72.829 - ELEVATED WHITE BLOOD CELL COUNT, UNSPECIFIED SNOMED Code(s): 251325961 (2) Septic arthritis Current Visit: Yes Status: Acute Code(s): M00.9 - PYOGENIC ARTHRITIS, UNSPECIFIED SNOMED Code(s): 223547254 Plan: 1patient presented to hospital with significant pain swelling to the right knee area in this patient who did have some chills but did not have any fever she did have elevated white count which could be related to steroids the patient has been on courses concerning for possible infection to the right knee area which cannot be done excluded. 2operative findings has been suggestive of septic arthritis with purulent drainage status post Right knee arthrotomy with irrigation, debridement, polyethylene exchange and antibiotic bead placement 3patient local culture currently growing Staph aureus with sensitivities pending for now continue cefepime and vancomycin as a blood culture have been negative will order PICC line multiple question concern has been also including need for long-term suppressive or antibiotic therapy after completion of IV 6- week course Dictation was produced using [employer] dictation software. please excuse any grammatical, word or spelling errors. Time with Patient: Less than 30
--- NOTE | 2024-07-07 19:34 | P.PN ---
Subjective Patient is a 63-year-old female with known history of hyperlipidemia and right total knee arthroplasty on 05/22/2024. Patient states that she has been doing well until 06/28/2024. She developed rash while in the bilateral upper and lower extremities. She was started on prednisone tapering course. Patient presented to orthopedic surgery office with complaints of significant pain in hip right knee and increased swelling and some redness over the suture site. There is also having decreased range of motion. Patient states that she was having both 3-4 episodes and also severe shaking chills. Symptoms were concerning for periprosthetic infection involving the right knee and she was advised to go to ER. Arthrocentesis was attempted while in the ER. Laboratory data showed WBC 19.1 hemoglobin 12.4 and platelets 408 MCV 76 point Sodium 134 potassium 5.4 with slight hemolysis chloride 99 bicarb is 22 BUN 18 and creatinine 0.56 and blood sugar 132 AST 47 ALT 44 and alk phos 192 and CRP 24.1. Blood culture was sent from the ER. 07/05 Patient s/p right knee arthrotomy and debridement with irrigation and antibiotic bead placement. Today's postop day #0 Postoperatively patient is sleepy. Complains from pain in her right knee. No chest pain or dyspnea. Vital stable She has leukocytosis 19.1 down to 18.1 Liver enzymes slightly worse. Hemoglobin dropped 12.4 down to 10.6 Aspirin is placed on hold. Con normal sinus 75 mL/h Patient started on IV antibiotics with cefepime and IV vancomycin per ID team Blood cultures pending Male Family member at bedside and questions answered 07/06 Pain controlled in the right knee about 5/10, still on pain pump No other new complaint Sitting up in chair and eating her breakfast Remains on IV antibiotics with IV cefepime and IV vancomycin Wound culture from yesterday procedures pending. Plan of care discussed with the patient and she is agreeable 07/07 Pain in the right knee looks better, currently 6-09/21 She remains on IV vancomycin Culture from right knee showing staph pending final sensitivity The home lower extremity is wrapped with Marcell bandage Objective - Vital Signs Vital signs: Vital Signs Temp 98.6 F 07/07/24 06:50 Pulse 84 07/07/24 06:50 Resp 16 07/07/24 06:50 BP 118/71 07/07/24 06:50 Pulse Ox 94 L 07/07/24 06:50 FiO2 Intake & Output 07/06/24 07/07/24 07/07/24 18:59 06:59 18:59 Intake Total 2200 120 Balance 2200 120 Intake: Intake, IV Titration 600 Amount Cefepime 2 gm In Dextrose 100 5% in Water 100 ml @ 25 mls/hr IVPB Q8HR ADONIS Rx#: [id number] Vancomycin 1,750 mg In 500 Sodium Chloride 0.9% 500 ml 500 ml @ 167 mls/hr IVPB Q12H ADONIS Rx#: [id number] Oral 1600 120 Other: Voiding Method Toilet Bedside Commode # Voids 2 2 2 - Exam GENERAL: The patient is alert and oriented x3, not in any acute distress. Well developed, well nourished. HEENT: Pupils are round and equally reacting to light. EOMI. No scleral icterus. No conjunctival pallor. Normocephalic, atraumatic. No pharyngeal erythema. No thyromegaly. CARDIOVASCULAR: S1 and S2 present. No murmurs, rubs, or gallops. PULMONARY: Chest is clear to auscultation, no wheezing , no crackles. ABDOMEN: Soft, nontender, nondistended, normoactive bowel sounds. No palpable organomegaly. MUSCULOSKELETAL: No joint swelling or deformity. -EXTREMITIES: No cyanosis, clubbing, or pedal edema. Right lower extremity is all covered with Marcell bandage NEUROLOGICAL: Gross neurological examination did not reveal any focal deficits. SKIN: No rashes. no petechiae. - Labs CBC & Chem 7: 07/06/24 04:56 07/07/24 04:12 Labs: Microbiology - Last 24 Hours (Table) 07/05/24 12:03 Gram Stain - Preliminary Knee - Right Wound Culture - Preliminary Presumptive Staph aureus 07/05/24 12:02 Gram Stain - Preliminary Knee - Right Wound Culture - Preliminary Presumptive Staph aureus 07/04/24 12:53 Blood Culture - Preliminary Blood Assessment and Plan Assessment: Right knee swelling, pain and decreased range of motion left with redness over t he surgical site. Possible periprosthetic infection cannot be excluded. Leukocytosis likely due to above and patient is also on prednisone tapering course. History of right total knee arthroplasty on 05/22/2024 Hypovolemic hyponatremia Mild hyperkalemia. Hemolyzed sample. Elevated liver enzymes Plan: Continue with IV antibiotic as per ID team recommendation. Currently on IV cefepime and IV vancomycin Follow-up culture results, blood culture and wound culture Continue with postop care and pain management Orthopedic primary team following closely Resume home medication Further recommendation based on clinical course GI prophylaxis DVT prophylaxis Prognosis is guarded
[2024-07-08] MEDS: HYDROcodone/APAP 10-325MG 1 EACH TAB PO PRN (06:54)
[2024-07-08 07:44] VITALS: BP 144/70; PULSE 86; RESP 17; TEMP 98.3
[2024-07-08 09:49] LABS: HCT 29.4 % (37.2-46.3); HGB 8.8 g/dL (12.0-15.0); MCH 24.2 pg (27.0-32.0); MCHC 29.9 g/dL (32.0-37.0); MCV 80.8 FL (80.0-97.0); Mean Platelet Volume 9.5 FL (9.5-12.2); NRBC Per 100 WBC 0 X 10*3/uL (0.00-0.01); Platelet Count 422 X 10*3/uL (140-440); RBC 3.64 X 10*6/uL (4.10-5.20); RDW 15.1 % (11.5-14.5); WBC 18.16 X 10*3/uL (4.50-10.00)
[2024-07-08 10:48] LABS: Basophils # (M) 0 X 10*3/uL (0.00-0.10); Eosinophils # (M) 0.73 X 10*3/uL (0.04-0.35); Lymphocytes # (M) 0.73 X 10*3/uL (0.90-5.00); Metamyelocytes % 3 % (0-0); Monocytes # (M) 1.45 X 10*3/uL (0.20-1.00); Neutrophils # (M) 14.71 X 10*3/uL (1.80-7.70); Neutrophils % (M) 81 %; RBC Morphology Normal (Normal)
--- NOTE | 2024-07-08 12:44 | P.PN ---
Subjective Patient is a 63-year-old female with known history of hyperlipidemia and right total knee arthroplasty on 05/22/2024. Patient states that she has been doing well until 06/28/2024. She developed rash while in the bilateral upper and lower extremities. She was started on prednisone tapering course. Patient presented to orthopedic surgery office with complaints of significant pain in hip right knee and increased swelling and some redness over the suture site. There is also having decreased range of motion. Patient states that she was having both 3-4 episodes and also severe shaking chills. Symptoms were concerning for periprosthetic infection involving the right knee and she was advised to go to ER. Arthrocentesis was attempted while in the ER. Laboratory data showed WBC 19.1 hemoglobin 12.4 and platelets 408 MCV 76 point Sodium 134 potassium 5.4 with slight hemolysis chloride 99 bicarb is 22 BUN 18 and creatinine 0.56 and blood sugar 132 AST 47 ALT 44 and alk phos 192 and CRP 24.1. Blood culture was sent from the ER. 07/05 Patient s/p right knee arthrotomy and debridement with irrigation and antibiotic bead placement. Today's postop day #0 Postoperatively patient is sleepy. Complains from pain in her right knee. No chest pain or dyspnea. Vital stable She has leukocytosis 19.1 down to 18.1 Liver enzymes slightly worse. Hemoglobin dropped 12.4 down to 10.6 Aspirin is placed on hold. Con normal sinus 75 mL/h Patient started on IV antibiotics with cefepime and IV vancomycin per ID team Blood cultures pending Male Family member at bedside and questions answered 07/06 Pain controlled in the right knee about 5/10, still on pain pump No other new complaint Sitting up in chair and eating her breakfast Remains on IV antibiotics with IV cefepime and IV vancomycin Wound culture from yesterday procedures pending. Plan of care discussed with the patient and she is agreeable 07/07 Pain in the right knee looks better, currently 6-7 She remains on IV vancomycin Culture from right knee showing staph pending final sensitivity The home lower extremity is wrapped with Marcell bandage 07/08 pain controlled Leukocytosis improving slightly 18.1 hemoglobin 8.8 Culture growing MSSA in the blood in the wound culture She is currently on IV daptomycin per ID team 6 Objective - Vital Signs Vital signs: Vital Signs Temp 98.3 F 07/08/24 06:50 Pulse 86 07/08/24 06:50 Resp 17 07/08/24 06:50 BP 144/70 07/08/24 06:50 Pulse Ox 98 07/08/24 06:50 FiO2 Intake & Output 07/07/24 07/08/24 07/08/24 18:59 06:59 18:59 Intake Total 520 2700 Balance 520 2700 Intake: Oral 520 2700 Other: Voiding Method Bedside Commode # Voids 3 6 - Exam GENERAL: The patient is alert and oriented x3, not in any acute distress. Well developed, well nourished. HEENT: Pupils are round and equally reacting to light. EOMI. No scleral icterus. No conjunctival pallor. Normocephalic, atraumatic. No pharyngeal erythema. No thyromegaly. CARDIOVASCULAR: S1 and S2 present. No murmurs, rubs, or gallops. PULMONARY: Chest is clear to auscultation, no wheezing , no crackles. ABDOMEN: Soft, nontender, nondistended, normoactive bowel sounds. No palpable organomegaly. MUSCULOSKELETAL: No joint swelling or deformity. -EXTREMITIES: No cyanosis, clubbing, or pedal edema. Right lower extremity is all covered with Marcell bandage NEUROLOGICAL: Gross neurological examination did not reveal any focal deficits. SKIN: No rashes. no petechiae. - Labs CBC & Chem 7: 07/08/24 05:13 07/07/24 04:12 Labs: Abnormal Lab Results - Last 24 Hours (Table) 07/08/24 Range/Units 05:13 WBC 18.16 H (4.50-10.00) X 10*3/uL RBC 3.64 L (4.10-5.20) X 10*6/uL Hgb 8.8 L (12.0-15.0) g/dL Hct 29.4 L (37.2-46.3) % MCH 24.2 L (27.0-32.0) pg MCHC 29.9 L (32.0-37.0) g/dL RDW 15.1 H (11.5-14.5) % Neutrophils # (Manual) 14.71 H (1.80-7.70) X 10*3/uL Lymphocytes # (Manual) 0.73 L (0.90-5.00) X 10*3/uL Monocytes # (Manual) 1.45 H (0.20-1.00) X 10*3/uL Eosinophils # (Manual) 0.73 H (0.04-0.35) X 10*3/uL Microbiology - Last 24 Hours (Table) 07/04/24 12:53 Blood Culture - Preliminary Blood 07/05/24 12:03 Gram Stain - Final Knee - Right Wound Culture - Final Staphylococcus aureus 07/05/24 12:02 Gram Stain - Final Knee - Right Wound Culture - Final Staphylococcus aureus 07/05/24 12:02 Anaerobic Culture - Preliminary Knee - Right 07/05/24 12:03 Anaerobic Culture - Preliminary Knee - Right Assessment and Plan Assessment: Right knee swelling, pain and decreased range of motion left with redness over the surgical site. Possible periprosthetic infection cannot be excluded. Leukocytosis likely due to above and patient is also on prednisone tapering course. History of right total knee arthroplasty on 05/22/2024 Hypovolemic hyponatremia Mild hyperkalemia. Hemolyzed sample. Elevated liver enzymes Plan: Continue with IV antibiotic as per ID team recommendation. Currently on IV daptomycin Follow-up culture results, blood culture.: Growing MSSA Continue with postop care and pain management Orthopedic primary team following closely Resume home medication Further recommendation based on clinical course GI prophylaxis DVT prophylaxis Prognosis is guarded
--- NOTE | 2024-07-08 13:17 | P.PN ---
Subjective Progress Note Date: 07/08/24 Principal diagnosis: Right knee periprosthetic infection Patient seen and examined. Patient is resting comfortably in bed. She states that she has been up and utilizing the bedside commode without any difficulty. Surgical incision to the right knee is well-approximated and dressing is clean dry and intact. Patient reports that her significant other has plan picked up her medications from the pharmacy. She states that she has all needed equipment at home. Patient verbalizes understanding that home care will be reaching out to her to set up a schedule. Patient states that all needs are met at this time. Objective - Vital Signs Vital signs: Vital Signs Temp 98.3 F 07/08/24 06:50 Pulse 86 07/08/24 06:50 Resp 17 07/08/24 06:50 BP 144/70 07/08/24 06:50 Pulse Ox 98 07/08/24 06:50 FiO2 Intake & Output 07/07/24 07/08/24 07/08/24 18:59 06:59 18:59 Intake Total 520 2700 Balance 520 2700 Intake: Oral 520 2700 Other: Voiding Method Bedside Commode # Voids 3 6 - Exam Right lower extremity: Surgical incision over the right knee is well-approximated. No increase in erythema noted. No active drainage visualized from the incision. Her sensory exam to light touch throughout that extremity is intact. Her dorsalis pedis pulses 2+. Calf is soft, no tenderness with palpation. Sensation to light touch throughout the extremity is intact. - Labs CBC & Chem 7: 07/08/24 05:13 07/07/24 04:12 Labs: Abnormal Lab Results - Last 24 Hours (Table) 07/08/24 Range/Units 05:13 WBC 18.16 H (4.50-10.00) X 10*3/uL RBC 3.64 L (4.10-5.20) X 10*6/uL Hgb 8.8 L (12.0-15.0) g/dL Hct 29.4 L (37.2-46.3) % MCH 24.2 L (27.0-32.0) pg MCHC 29.9 L (32.0-37.0) g/dL RDW 15.1 H (11.5-14.5) % Neutrophils # (Manual) 14.71 H (1.80-7.70) X 10*3/uL Lymphocytes # (Manual) 0.73 L (0.90-5.00) X 10*3/uL Monocytes # (Manual) 1.45 H (0.20-1.00) X 10*3/uL Eosinophils # (Manual) 0.73 H (0.04-0.35) X 10*3/uL Microbiology - Last 24 Hours (Table) 07/04/24 12:53 Blood Culture - Preliminary Blood 07/05/24 12:03 Gram Stain - Final Knee - Right Wound Culture - Final Staphylococcus aureus 07/05/24 12:02 Gram Stain - Final Knee - Right Wound Culture - Final Staphylococcus aureus 07/05/24 12:02 Anaerobic Culture - Preliminary Knee - Right 07/05/24 12:03 Anaerobic Culture - Preliminary Knee - Right Assessment and Plan Assessment: Right knee periprosthetic infection Postoperative day #3 status post right knee arthrotomy with irrigation and debridement, polyethylene liner exchange and antibiotic bead placement Other medical comorbidities Plan: -Appreciate national sales consultant and team management. -Activity: Ambulate QID, OOB all meals, up and about, limit lifting bending twisting to less than 5 lbs. Use walker or cane if needed for stability. -Daily PT/OT, increase ambulation strength and balance. -Pain control: Adequate at this time -Meds: reviewed -GI ppx: senna, Miralax -Hygiene: Maintain incision clean and dry. -Encourage IS 10x/hr -Dispo: Discharge home with homecare later today. *I reviewed and discussed this case with my attending Dr. Duron, whom has reviewed this chart and films and is in agreement with assessment and plan of care as outlined above. I have personally seen and examined the patient, performed the documentation and the assessment and plan as written. Number of minutes spent on the visit: 20m.
--- NOTE | 2024-07-08 13:20 | P.DS ---
Providers Date of admission: 07/04/24 13:32 Expected date of discharge: 07/08/24 Attending physician: Sander Duron Consults: 07/04/24 12:29 Consult Physician Urgent Consulting Provider: Louis Blackwell Consult Reason/Comments: medical Management Do you want consulting provider notified?: Yes Consult Physician Urgent Consulting Provider: Rishi Vargas Consult Reason/Comments: knee infection Do you want consulting provider notified?: Yes Primary care physician: Madina Lor [facility] Course: Hospital Course: The patient was evaluated preoperatively and found to have the diagnosis of right knee periprosthetic infection, they underwent appropriate preoperative care and were willing to undergo the intended procedure. They underwent a successful right knee arthrotomy with irrigation and debridement, polyethylene liner exchange and antibiotic bead placement and were recovered appropriately and sent to the floor. While on the floor they worked with physical therapy, o ccupational therapy and nursing to enhance their recovery experience. Their pain was well controlled through their stay and they were started on appropriate medications, DVT ppx modalities, activity and dietary needs. Daily labs were monitored closely, and transfusions were only used when necessary. Medicine as well as other consulting services have made their input and have helped with our team approach and multidisciplinary care. PT milestones have been met and passed and they have made the recommendation of home with homecare for this patient and treating providers agree with this care path. The patient will be discharged home with appropriate medications, instructions and follow-up information and in stable condition. Patient Condition at Discharge: Good Plan - Discharge Summary Discharge Rx Participant: No New Discharge Prescriptions: New ceFAZolin [Kefzol] 2 gm IVP Q8HR #120 each HYDROcodone/APAP 7.5-325MG [[place] 7.5] 1 each PO Q4HR PRN #42 tab PRN Reason: Pain No Action Atorvastatin [Lipitor] 40 mg PO HS predniSONE See Taper PO DIRECTED HYDROcodone/APAP 7.5-325MG [[place] 7.5] 1 tab PO Q4HR PRN PRN Reason: Pain Aspirin [Adult Low Dose Aspirin EC] 81 mg PO HS Discharge Medication List Aspirin [Adult Low Dose Aspirin EC] 81 mg PO HS 07/04/24 [History] Atorvastatin [Lipitor] 40 mg PO HS 07/04/24 [History] HYDROcodone/APAP 7.5-325MG [[place] 7.5] 1 tab PO Q4HR PRN 07/04/24 [History] predniSONE See Taper PO DIRECTED 07/04/24 [History] HYDROcodone/APAP 7.5-325MG [[place] 7.5] 1 each PO Q4HR PRN #42 tab 07/07/24 [Rx] ceFAZolin [Kefzol] 2 gm IVP Q8HR #120 each 07/08/24 [Rx] Follow up Appointment(s)/Referral(s): Madina Horowitz MD [Primary Care Provider] - 1-2 days [facility], [NON-STAFF] - 1-2 Days ([facility] will call you to schedule your in home nursing visits to initiate IV antibiotics and teaching. Your first visit will be on 07/09/24. They will call you with the time. ) [facility] [NON-STAFF] - As Needed ([facility] will delivery outpatient IV antibiotic supplies to your house on the evening of discharge on 07/08/24. ) Ermias Lozada PAC [PHYSICIAN NET DEVELOPER PROGRAMMER] - 10 Days Rishi Vargas MD [STAFF PHYSICIAN] - 1 Week Ambulatory/Diagnostic Orders: Basic Metabolic Panel [LAB.AMB] Location: None Selected C Reactive Protein [LAB.AMB] Location: None Selected Complete Blood Count w/diff [LAB.AMB] Location: None Selected Erythrocyte Sedimentation Rate [LAB.AMB] Location: None Selected Activity/Diet/Wound Care/Special Instructions: Orthopedic Discharge Instructions: 1. Wound care and infection precautions, keep incision dry and covered while showering, no lotions, creams, moisturizers. No soaking, pools, hot tubs. Do not scrub over incision. 2. Weight-bear as tolerated with walker / cane until follow-up. 3. Ice and elevate when necessary. Do not exceed 20 minutes per hour with ice pack. 4. Utilize compression sleeve until seen at first follow up appointment. 5. Pain meds and anticoagulants per prescription. 6. Pain medication has potential to cause constipation. Increase oral fluid and fiber intake. Contact primary care provider if you have not had a bowel movement within 48 hours after discharge. 7. No anti-inflammatory medication until discussed at first post operative visit, this including Motrin, Aleve, Mobic, Diclofenac. 8. Follow up in office at 2 weeks postop with Geoffrey Lozada PA-C/Sylvester Lindsay PA-C 9. Follow up with your primary care doctor 7-10 days after discharge. 10. Contact [facility] with any questions, . Discharge Disposition: HOME WITH HOME HEALTH SERVICES
--- NOTE | 2024-07-08 14:29 | P.PN ---
Subjective Progress Note Date: 07/08/24 Principal diagnosis: Reason for follow-up is right knee septic arthritis Patient is a 63-year-old female with past medical history of confirmed hyperlipidemia osteoarthritis in this patient who is status post right knee arthroplasty completed on 05/22/2024 no admitted to hospital concerning for right knee septic arthritis in this patient with status post Right knee arthrotomy with irrigation, debridement, polyethylene exchange and antibiotic bead placement. On today's evaluation that is 07/08/2024, Patient is afebrile patient is currently on room air and denies having any shortness of breath, the patient denies any chest pain or cough, the patient denies any nausea vomiting did not have any abdominal pain and no diarrhea, pain to the right knee is currently co ntrolled. Patient white count is 18.16 creatinine 0.5 blood culture with MSSA blood culture negative so far Objective - Vital Signs Vital signs: Vital Signs Temp 98.3 F 07/08/24 06:50 Pulse 86 07/08/24 06:50 Resp 17 07/08/24 06:50 BP 144/70 07/08/24 06:50 Pulse Ox 98 07/08/24 06:50 FiO2 Intake & Output 07/07/24 07/08/24 07/08/24 18:59 06:59 18:59 Intake Total 520 2700 Balance 520 2700 Intake: Oral 520 2700 Other: Voiding Method Bedside Commode # Voids 3 6 - Exam GENERAL DESCRIPTION: Middle aged female lying in bed in no distress RESPIRATORY SYSTEM: Unlabored breathing , EXTREMITIES: Right knee is currently dressed - Labs CBC & Chem 7: 07/08/24 05:13 07/07/24 04:12 Labs: Abnormal Lab Results - Last 24 Hours (Table) 07/08/24 Range/Units 05:13 WBC 18.16 H (4.50-10.00) X 10*3/uL RBC 3.64 L (4.10-5.20) X 10*6/uL Hgb 8.8 L (12.0-15.0) g/dL Hct 29.4 L (37.2-46.3) % MCH 24.2 L (27.0-32.0) pg MCHC 29.9 L (32.0-37.0) g/dL RDW 15.1 H (11.5-14.5) % Microbiology - Last 24 Hours (Table) 07/04/24 12:53 Blood Culture - Preliminary Blood 07/05/24 12:03 Gram Stain - Final Knee - Right Wound Culture - Final Staphylococcus aureus 07/05/24 12:02 Gram Stain - Final Knee - Right Wound Culture - Final Staphylococcus aureus 07/05/24 12:02 Anaerobic Culture - Preliminary Knee - Right 07/05/24 12:03 Anaerobic Culture - Preliminary Knee - Right Assessment and Plan (1) Leukocytosis Current Visit: Yes Status: Acute Code(s): D72.829 - ELEVATED WHITE BLOOD CELL COUNT, UNSPECIFIED SNOMED Code(s): 423824020 (2) Septic arthritis Current Visit: Yes Status: Acute Code(s): M00.9 - PYOGENIC ARTHRITIS, UNSPECIFIED SNOMED Code(s): 305723423 Plan: 1patient presented to hospital with significant pain swelling to the right knee area in this patient who did have some chills but did not have any fever she did have elevated white count which could be related to steroids the patient has been on courses concerning for possible infection to the right knee area which cannot be done excluded. 2operative findings has been suggestive of septic arthritis with purulent drainage status post Right knee arthrotomy with irrigation, debridement, polyethylene exchange and antibiotic bead placement 3patient blood culture has been negative local culture finalized with MSSA I did discontinue vancomycin and cefepime we will give her a dose of daptomycin and the patient will start cefazolin 2 g every 8 hours at home tomorrow prescription has been sent to the infusion clinic question concern answered follow-up in the office in 1 to 2 weeks Dictation was produced using [employer] dictation software. please excuse any grammatical, word or spelling errors.
[2024-07-08] MEDS: DAPTOmycin 500 MG in SODIUM CHLORIDE 0.9% 50 ML IVPB SCH (14:42)
[2024-07-09] MEDS ORDERED: VANCOMYCIN TROUGH DUE 1 EACH MISC MISCELLANE ONE (04:00)
== END 2024-07-08 17:17 | disposition home health service (06) | DRG 486 ==
LOC: EC 12:12 → 4SSUR 13:32
PROVIDERS: ADMIT Orthopaedic Surgery; ATTEND Orthopaedic Surgery
PROC: 3E1U48Z Irrigation of Joints using Irrigating Substance, Percutaneous Endoscopic Approach (ICD-10-PCS; principal; 2024-07-05 11:05)
PROC: 0SPC09Z Removal of Liner from Right Knee Joint, Open Approach (ICD-10-PCS; principal; 2024-07-05 11:05)
PROC: 3E0U029 Introduction of Other Anti-infective into Joints, Open Approach (ICD-10-PCS; principal; 2024-07-05 11:05)
PROC: 0SUV09Z Supplement Right Knee Joint, Tibial Surface with Liner, Open Approach (ICD-10-PCS; principal; 2024-07-05 11:05)
PROC: 05HC33Z Insertion of Infusion Device into Left Basilic Vein, Percutaneous Approach (ICD-10-PCS; 2024-07-07)
DX: T84.53XA Infection and inflammatory reaction due to internal right knee prosthesis, initial encounter (principal); E87.1 Hypo-osmolality and hyponatremia; E78.5 Hyperlipidemia, unspecified; E86.1 Hypovolemia; E87.5 Hyperkalemia; M19.90 Unspecified osteoarthritis, unspecified site; M25.559 Pain in unspecified hip; R11.2 Nausea with vomiting, unspecified; R21 Rash and other nonspecific skin eruption; R74.8 Abnormal levels of other serum enzymes; Z79.82 Long term (current) use of aspirin; Z79.899 Other long term (current) drug therapy; Z90.710 Acquired absence of both cervix and uterus; Y83.1 Surgical operation with implant of artificial internal device as the cause of abnormal reaction of the patient, or of later complication, without mention of misadventure at the time of the procedure
CPT/HCPCS: 36415; 36573; 64447; 80053; 80076; 80202; 82565; 83540; 83550; 83605; 85025; 85652; 86140; 87040; 87070; 87075; 87077; 87186; 87205; 96374; 96375; 99285